=== PATIENT | female | born 1985 | race Caucasian/White ===

== ENCOUNTER 2019-03-17 14:49 | Emergency (ER) | payer SELFPAY ==
[2019-03-17 14:59] VITALS: BP 107/87; PULSE 90; RESP 16; TEMP 38.5; O2SAT 100
--- NOTE | 2019-03-17 15:17 | ED.URI ---
HPI - URI/Sore Throat General Chief Complaint: Upper Respiratory Infection Stated Complaint: [id number] Time Seen by Provider: 03/17/19 15:18 Source: patient and RN notes reviewed History of Present Illness HPI Narrative: Patient is a 33-year-old female presents the urgent care with complaints of nasal congestion, chills, body aches, cough, sneezing, fever. Patient states that started 3 days ago she has been taking Tylenol for her symptoms. Patient did not get her flu shot. Denies of any nausea, vomiting, abdominal pain. No other acute complaints. Patient does appear fatigued but otherwise no acute distress noted. Patient read the plan of care. Related Data Allergies Allergy/AdvReac Type Severity Reaction Status Date / Time citric acid Allergy Severe Verified 02/22/18 12:43 Review of Systems Review of Systems: Narrative: CONSTITUTIONAL: Reports a fever and chills EYES: Denies visual changes, redness, or discharge. ENT: Reports of nasal congestion, sinus pressure, rhinorrhea, sneezing CARDIOVASCULAR: Denies chest pain, palpitations, or edema. RESPIRATORY: Reports of cough without dyspnea or wheezing GASTROINTESTINAL: Denies abdominal pain, nausea, vomiting, or diarrhea. GENITOURINARY: Denies dysuria or hematuria. SKIN: Denies rash or itching. MUSCULOSKELETAL: Denies back pain, joint pain; reports of body aches NEUROLOGIC: Denies headache, numbness, or weakness. PMFSH Social History Social History Smoking status: Current every day smoker Alcohol intake: current Comments At the time of my signature, I reviewed and agree with the nursing past medical, surgical, social, and family history. There is no relevant family history pertinent to the patient complaint. Exam Narrative: Exam Narrative: GENERAL: This is a well-nourished, well-developed patient, appears slightly flushed and fatigued HEAD: normocephalic, atraumatic. EYES: PERRL. Sclera clear/white. Vision is grossly intact. EARS: External ears normal, auditory canals clear and without drainage, TMs normal without perforation. Hearing grossly intact. NOSE: External nose normal with no obvious nasal discharge, bilateral erythemic nares with clear to yellow rhinorrhea THROAT: Mucous membranes moist, posterior pharynx clear. Moderate postnasal drainage NECK: Neck supple CARDIOVASCULAR: Regular rate and rhythm without murmurs, gallops, or rubs. RESPIRATORY: Clear to auscultation. Breath sounds equal bilaterally. No wheezes, rales, or rhonchi. SKIN: warm, intact with no suspicious lesions or rash, good texture and turgor. NEURO: awake, alert, and oriented to person, place and time. There were no obvious focal neurologic abnormalities. EXTREMITIES: No clubbing, cyanosis, or edema. Course Vital Signs Vital signs: Vital Signs Temperature 101.3 F H 03/17/19 14:59 Pulse Rate 90 03/17/19 14:59 Respiratory Rate 16 03/17/19 14:59 Blood Pressure 107/87 03/17/19 14:59 Pulse Oximetry 100 03/17/19 14:59 Temperature 101.3 F H 03/17/19 14:59 Pulse Rate 90 03/17/19 14:59 Respiratory Rate 16 03/17/19 14:59 Blood Pressure 107/87 03/17/19 14:59 Pulse Oximetry 100 03/17/19 14:59 Reviewed MDM - URI/Sore Throat MDM Narrative Medical decision making narrative: Reviewed lab results with the patient. She is aware that she is influenza B positive. Treat symptoms with [id number] medication such as Robitussin/Delsym for cough, Claritin for allergy-like symptoms, Flonase for nasal congestion, Tylenol/Motrin for fever/body aches. Increase fluids, especially water and rest. Use a humidifier. Be aware of symptoms of dehydration such as lethargy, confusion, increased weakness, dry lips, dry eyes. Follow-up with PCP within 2-5 days or for worsening symptoms or failure to improve. Differential Diagnosis Differential diagnosis: Likely upper respiratory infection, otitis media, sinusitis, viral infection, bronchitis, influenza and pharyngitis Lab Data Attest
== END 2019-03-17 15:25 | disposition home or self-care (01) ==
PROVIDERS: Emergency Provider Nurse Practitioner Family
DX: J10.1 Influenza due to other identified influenza virus with other respiratory manifestations (principal); F17.200 Nicotine dependence, unspecified, uncomplicated
CPT/HCPCS: 87804; 99212; G0463

== ENCOUNTER 2019-05-10 10:45 | Emergency (ER) | payer SELFPAY ==
--- NOTE | ~2019-05-10 | XR_ITS ---
EXAMINATION: XR chest 1V portable INDICATION: Shortness of breath TECHNIQUE: Portable AP chest at 1130 hours COMPARISON: 07/31/2017 FINDINGS: The lungs are free of acute opacities. There is no pleural effusion or pneumothorax. The ca rdiomediastinal silhouette is normal. The visualized bones and soft tissues are unremarkable. IMPRESSION: 1. No acute cardiopulmonary abnormality. Reviewed, dictated and finalized at location B.
[2019-05-10 10:50] VITALS: BP 121/72; PULSE 86; RESP 10; TEMP 36.8; O2SAT 100
[2019-05-10 11:01] VITALS: PULSE 79
[2019-05-10 11:04] VITALS: O2SAT 99
--- NOTE | 2019-05-10 11:12 | ED.GENADULT ---
HPI - General Adult General Chief complaint: Chest Pain Stated complaint: chest pain/diff breathing/fever Time Seen by Provider: 05/10/19 10:49 Source: patient Mode of arrival: ambulatory Limitations: no limitations History of Present Illness HPI narrative: Pt is here for evaluation of cold and flu symptoms. States that she had a temperature of 101F yesterday, she did not take anything for that and is afebrile here today. Other symptoms are frequent small amounts of diarrhea and chest tightness last evening,none today. No cough or congestion. She has a history of asthma as a small child, no current medications. She works in [employer], denies any known sick contacts and no recent travel. Onset (ago): day(s) Severity: mild Associated symptoms: denies other symptoms Related Data Allergies Allergy/AdvReac Type Severity Reaction Status Date / Time citric acid Allergy Severe Anaphylaxis Verified 05/10/19 10:59 Review of Systems Review of Systems: All systems reviewed & are unremarkable except as noted in HPI and below PMFSH Past Medical History Medical History Asthma Social History Social History (Updated 05/10/19 @ 11:28 by Katerin Rehman PA-C) Smoking status: Current every day smoker Alcohol intake: current Substance use: never Living arrangements: with family Occupation/Education: occupation 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 [employer] Gender identity (if verbalized by the patient): Female Exam Const: General: no acute distress and alert Orientation/consciousness: patient oriented x3 HENMT: Head: normal to inspection Ears: TM's normal bilaterally General nose exam: Normal nares present Mouth: Yes moist mucous membranes Eyes: Conjunctivae: conjunctivae normal Pupils: Equal, round and reactive pupils present Neck: Neck: no lymphadenopathy Resp: Effort & Inspection: normal respiratory effort Auscultation: clear to auscultation bilaterally Cardio: Rate: regular rate Rhythm: regular rhythm GI: GI Palp: Yes Soft to palpation Auscultation: normal bowel sounds Skin: General skin exam: normal color Rashes: no rashes Neuro: General: moves all extremities Extrem: General: normal to inspection Psych: Mental Status: mental status grossly normal Course Course Emergency Course: Radiology and lab results reviewed with patient. Will treat with Albuterol MDI for respiratory symptoms, fever with NSAIDS and diarrhea with oral hydration and OTC medications. pt is instructed to use good hand washing and social distancing. Should she develop a persistent fever she is to contact the health department for further testing. Vital Signs Vital signs: Vital Signs Temperature 36.8 C 05/10/19 10:50 Pulse Rate 86 05/10/19 10:50 Respiratory Rate 10 L 05/10/19 10:50 Blood Pressure 121/72 05/10/19 10:50 Pulse Oximetry 100 05/10/19 10:50 Temperature 36.8 C 05/10/19 10:50 Pulse Rate 79 05/10/19 11:01 Respiratory Rate 10 L 05/10/19 10:50 Blood Pressure 121/72 05/10/19 10:50 Pulse Oximetry 99 05/10/19 11:04 Medical Decision Making Vital Signs Vital Signs: Vital Signs Temperature 36.8 C 05/10/19 10:50 Pulse Rate 86 05/10/19 10:50 Respiratory Rate 10 L 05/10/19 10:50 Blood Pressure 121/72 05/10/19 10:50 Pulse Oximetry 100 05/10/19 10:50 Temperature 36.8 C 05/10/19 10:50 Pulse Rate 79 05/10/19 11:01 Respiratory Rate 10 L 05/10/19 10:50 Blood Pressure 121/72 05/10/19 10:50 Pulse Oximetry 99 05/10/19 11:04 Lab Data Result diagrams: 05/10/19 11:38 05/10/19 11:37 Labs: Lab Results 05/10/19 05/10/19 Range/Units 11:37 11:38 WBC 6.5 (4.5-10.0) K/mm3 RBC 4.60 (4.2-5.4) M/mm3 Hgb 13.9 (12.0-15.0) g/dL Hct 42.3 (37.0-47.0) % MCV 92.0 (80-100) fl MCH 30.2 (26-34) pg MCHC 32.9 (32-36) g/dl RDW 13.0 (11.5-1
--- NOTE | 2019-05-10 11:14 | ECG_ITS ---
Measurements Intervals [place] Rate: 84 P: 45 TX: 143 QRS: 69 QRSD: 88 T: 47 QT: 338 QTc: 402 Interpretive Statements SINUS RHYTHM INCOMPLETE RIGHT BUNDLE BRANCH BLOCK BASELINE WANDER- I, III BORDERLINE ECG Electronically Signed On 05-10-2019 13:03:15 CDT by Mikel Gomez D.O.
[2019-05-10 11:44] LABS: Basophils Percent Auto 0.5 % (0.2-1.2); Eosinophils Absolute Auto 0.3 K/mm3 (0-0.3); Eosinophils Percent Auto 3.8 % (0-4.4); Hematocrit 42.3 % (37.0-47.0); Hemoglobin 13.9 g/dL (12.0-15.0); Immature Granulocyte Absolute 0.01 K/mm3 (0.00-0.031); Immature Granulocyte Percent A 0.2 % (0-0.5); Lymphocytes Absolute Auto 1.72 K/mm3 (0.9-3.2); Lymphocytes Percent Auto 26.4 % (18.3-44.2); Mean Corpuscular HGB Conc 32.9 g/dl (32-36); Mean Corpuscular Hemoglobin 30.2 pg (26-34); Mean Platelet Volume 12.3 fl (7.4-10.4); Monocytes Absolute Auto 0.4 K/mm3 (0.1-0.6); Monocytes Percent Auto 6.7 % (2.6-8.5); Neutrophils Absolute Auto 4.1 K/mm3 (1.3-6.7); Neutrophils Percent Auto 62.4 % (45.5-73.1); Platelet Count Result 217 k/mm3 (150-375); White Blood Count 6.5 K/mm3 (4.5-10.0)
[2019-05-10 11:55] LABS: Blood Urea Nitrogen 11 mg/dL (7-17); Calcium 8.8 mg/dL (8.4-10.2); Carbon Dioxide 26 mmol/L (22-30); Chloride 106 mmol/L (98-107); Estimated Glomerular Filt Rate > 60; Glucose 97 mg/dL (65-105); Potassium 3.9 mmol/L (3.4-5.0); Sodium 135 mmol/L (137-145)
[2019-05-10 12:23] VITALS: BP 103/64; PULSE 81; RESP 16; O2SAT 100
== END 2019-05-10 12:25 | disposition home or self-care (01) ==
PROVIDERS: Physician Assistant; Emergency Provider Emergency Medicine
DX: J06.9 Acute upper respiratory infection, unspecified (principal); J45.909 Unspecified asthma, uncomplicated; I45.10 Unspecified right bundle-branch block
CPT/HCPCS: 36415; 71045; 80048; 85025; 87804; 93005; 99283

== ENCOUNTER 2020-12-24 11:56 | Emergency (ER) | payer SELFPAY ==
[2020-12-24 12:17] VITALS: BP 121/73; PULSE 94; RESP 16; TEMP 36.7; O2SAT 99
--- NOTE | 2020-12-24 16:28 | PC.NURSE ---
pt not in lobby when called
== END 2020-12-24 16:28 | disposition left against medical advice (07) ==
PROVIDERS: Emergency Provider Nurse Practitioner
DX: L02.414 Cutaneous abscess of left upper limb (principal)
CPT/HCPCS: 99199

== ENCOUNTER 2021-01-30 05:16 | Emergency (ER) | payer OTHER, SELFPAY ==
--- NOTE | ~2021-01-30 | CT_ITS ---
EXAMINATION: CT abdomen pelvis w con DATE: 01/30/2021 06:36 INDICATION: Right-sided abdominal pain and guarding TECHNIQUE: Computed tomography (CT) of the abdomen and pelvis was performed with 100 mL Omnipaque-350 intravenous contrast. Automated exposure control and iterative reconstruction technique were employe d. The dose-length product was 402.98 mGy-cm. COMPARISON: 08/11/2004 FINDINGS: 1.8 cm nodule at the lateral sulcus of the anterobasilar segment of the right lower lobe and 1.5 x 0. 7 cm nodule at the azygos esophageal recess of the right lower lobe. Heart size is normal. No pericar dial or pleural effusion. Liver, gallbladder, spleen, pancreas, bilateral adrenal glands and kidneys are normal. The appendix measures up to 7 mm in maximal diameter proximal to an appendicolith near th e tip. There is no surrounding inflammatory stranding to suggest acute appendicitis. No abnormal kenton l wall thickening or obstruction. 1.5 cm peripherally enhancing corpus luteum cyst at the right ovary . There is a small amount of free fluid in the cul-de-sac which is likely physiologic. Bladder, antev erted uterus and left adnexa are unremarkable. No abscess or free intraperitoneal gas. No pathologica lly enlarged abdominal or pelvic lymphadenopathy. Bones are unremarkable. IMPRESSION: 1. Corpus luteum cyst at the right ovary with small amount of surrounding likely physiologic free flu id at the right side of the cul-de-sac. 2. Appendicolith at the tip of the appendix which measures up to 7 mm but without surrounding inflamm atory stranding and suspicion for acute appendicitis is low. 3. A couple nodules measuring 1.8 cm and 1.1 cm mean diameter at the base of the right lower lobe. Th is could represent focal atelectasis, infectious/inflammatory nodule or less likely malignancy given patient age. In addition to the relatively low likelihood of malignancy, both nodules are poorly posi tioned for percutaneous biopsy and would recommend either 3 month follow-up low-dose noncontrast ches t CT. Reviewed, dictated and finalized at location A. [facility] IMPRESSION: 1. Corpus luteum cyst at the right ovary with small amount of surrounding likel y physiologic free fluid at the right side of the cul-de-sac. 2. Appendicolith at the tip of the appendix which measures up to 7 mm but witho ut surrounding inflammatory stranding and suspicion for acute appendicitis is l ow. 3. A couple nodules measuring 1.8 cm and 1.1 cm mean diameter at the base of th e right lower lobe. This could represent focal atelectasis, infectious/inflamma tory nodule or less likely malignancy given patient age. In addition to the rel atively low likelihood of malignancy, both nodules are poorly positioned for pe rcutaneous biopsy and would recommend either 3 month follow-up low-dose noncont rast chest CT.
[2021-01-30 05:22] VITALS: BP 106/73; PULSE 87; RESP 18; TEMP 36.4; O2SAT 100
--- NOTE | 2021-01-30 05:36 | ED.ABDPAIN ---
HPI - Abdominal Pain General Chief Complaint: Abdominal Pain Stated Complaint: abdominal pain Time Seen by Provider: 01/30/21 05:24 Source: patient History of Present Illness HPI narrative: Patient presents with right sided abdominal pain. Patient reports that started just prior to come to the ER and came out of nowhere. The pain is sharp, constant, worse with walking around radiates across her entire abdomen. She denies any nausea or vomiting she denies any diarrhea she denies any fevers. She denies any urinary symptoms denies any vaginal bleeding. Related Data Allergies Allergy/AdvReac Type Severity Reaction Status Date / Time citric acid Allergy Severe Anaphylaxis Verified 01/30/21 05:25 Review of Systems Review of Systems: CONSTITUTIONAL: Denies fever, chills, or sweats. EYES: Denies visual changes, redness, or discharge. ENT: Denies rhinorrhea, congestion, sore throat, or otalgia. CARDIOVASCULAR: Denies chest pain, palpitations, or edema. RESPIRATORY: Denies cough or dyspnea. GASTROINTESTINAL: Denies nausea, vomiting, or diarrhea. GENITOURINARY: Denies dysuria or hematuria. SKIN: Denies rash or itching. MUSCULOSKELETAL: Denies back pain, joint pain, or myalgia. NEUROLOGIC: Denies headache, numbness, dizziness, or weakness. PSYCHIATRIC: Denies anxiety or depression. 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 EYES: PERRLA and EOMI. ENT: Nares clear, no rhinorrhea or epistaxis. Mucous membranes moist. NECK: Supple. No masses. No JVD CHEST: Clear to auscultation. No respiratory distress. No wheezes rales or rhonchi HEART: Regular rate and rhythm. No murmur heard. Normal peripheral pulses. ABDOMEN: Severe tenderness on the right abdomen with guarding soft, nondistended, normal active bowel sounds. EXTREMITIES: Normal range of motion. No edema. SKIN: Warm, dry, no rash. NEURO: No focal deficits. Alert and oriented x3. PSYCH: Normal mood and affect. Course Reevaluation(s) Reevaluation #1: Patient feels somewhat improved after medications. Work-up thus far reviewed with patient. With reassuring work-up and patient symptoms improving she is appropriate for trial of outpatient supportive therapies. Patient is comfortable outpatient plan. Date: 01/30/21 Time: 07:27 Vital Signs Vital signs: Vital Signs Temperature 36.4 C 01/30/21 05:22 Pulse Rate 87 01/30/21 05:22 Respiratory Rate 18 01/30/21 05:22 Blood Pressure 106/73 01/30/21 05:22 Pulse Oximetry 100 01/30/21 05:22 Temperature 36.4 C 01/30/21 05:22 Pulse Rate 68 01/30/21 07:41 Respiratory Rate 18 01/30/21 07:41 Blood Pressure 95/65 L 01/30/21 07:41 Pulse Oximetry 99 01/30/21 07:41 MDM - Abdominal Pain MDM Narrative Medical decision making narrative: H&P as above, vss, pt looks clinically well, exam patient in moderate distress due to right-sided abdominal pain, labs with UA concerning for infection otherwise reassuring, img without acute process, additional labs/img considered, symptomatic relief available as needed, on reevaluation pt continues to looks clinically well. Suspect UTI and early pyelonephritis, dns severe sepsis, severe dehydration, appendicitis, perforation, bowel obstruction. plan to tx/monitor as op w/ pcm f/u findings/plan discussed with pt, pt agree/comfortable with plan, return precautions given Lab Data Result diagrams: 01/30/21 05:43 12
[2021-01-30] MEDS: MORPHINE SULFATE (*CRX) 4 MG/ML INJ IV PUSH (05:40)
[2021-01-30] MEDS: SODIUM CHLORIDE 0.9% IV 1,000 ML 999 ML IV CONT (05:40)
[2021-01-30 05:55] LABS: Eosinophils Absolute Auto 0.3 K/mm3 (0-0.3); Hematocrit 41.2 % (37.0-47.0); Hemoglobin 14.1 g/dL (12.0-15.0); Immature Granulocyte Absolute 0.02 K/mm3 (0.00-0.031); Immature Granulocyte Percent A 0.3 % (0-0.5); Lymphocytes Absolute Auto 2.04 K/mm3 (0.9-3.2); Lymphocytes Percent Auto 30.5 % (18.3-44.2); Mean Corpuscular HGB Conc 34.2 g/dl (32-36); Mean Corpuscular Hemoglobin 30.7 pg (26-34); Mean Corpuscular Volume 89.6 fl (80-100); Mean Platelet Volume 11.6 fl (7.4-10.4); Monocytes Absolute Auto 0.5 K/mm3 (0.1-0.6); Monocytes Percent Auto 7.9 % (2.6-8.5); Neutrophils Absolute Auto 3.8 K/mm3 (1.3-6.7); Neutrophils Percent Auto 57.3 % (45.5-73.1); Platelet Count Result 241 k/mm3 (150-375); Red Cell Distribution Width 12.2 % (11.5-14.5); White Blood Count 6.7 K/mm3 (4.5-10.0)
[2021-01-30 06:12] LABS: Add Urine Microscopic? YES; Appearance Urine Cloudy (Clear); Bacteria Urine Trace /hpf; Bilirubin Urine Negative (Negative); Blood Urine 1+ (Negative); Color Urine Yellow (Yellow); Glucose Urine UA Negative (Negative); Ketones Urine Negative (Negative); Leukocyte Esterase Ur 2+ LEU/UL (Negative); Mucus Urine Few /lpf; Nitrate Urine Negative (Negative); Protein Urine Negative (Negative); Specific Grav Ur 1.025 (1.001-1.035); Squamous Epithelial Cell Urine Many /hpf (Few); Urobilinogen Urine Negative mg/dL (<2.0); WBC Urine 31-50 /hpf
[2021-01-30 06:16] LABS: Alanine Aminotransferase 33 U/L (4-35); Albumin Level 4.4 g/dL (3.5-5.1); Alkaline Phosphatase 57 U/L (38-126); Anion Gap 9 mmol/L (8-16); Aspartate Amino Transferase 28 U/L (14-36); Bilirubin,Total 0.4 mg/dL (0.2-1.3); Blood Urea Nitrogen 9 mg/dL (7-17); Calcium 8.9 mg/dL (8.4-10.2); Carbon Dioxide 21 mmol/L (22-30); Chloride 106 mmol/L (98-107); Estimated CRCL calculation 78 ml/min; Estimated Glomerular Filt Rate > 60; Glucose 108 mg/dL (65-110); Lipase 96 U/L (23-300); Sodium 136 mmol/L (137-145)
[2021-01-30 06:51] VITALS: BP 99/64; PULSE 74; RESP 16; O2SAT 98
[2021-01-30 07:01] VITALS: BP 92/70; RESP 18; O2SAT 100
[2021-01-30 07:14] VITALS: BP 95/67; RESP 18
[2021-01-30] MEDS: KETOROLAC 15 MG/ML VIAL (*BKC) IV PUSH (07:34)
[2021-01-30 07:41] VITALS: BP 95/65; PULSE 68; RESP 18; O2SAT 99
[2021-01-30 08:15] VITALS: BP 98/69; PULSE 73; RESP 18; O2SAT 100
== END 2021-01-30 08:16 | disposition home or self-care (01) ==
PROVIDERS: Emergency Provider Emergency Medicine
DX: N39.0 Urinary tract infection, site not specified (principal); R91.8 Other nonspecific abnormal finding of lung field; J45.909 Unspecified asthma, uncomplicated; F17.200 Nicotine dependence, unspecified, uncomplicated; N83.11 Corpus luteum cyst of right ovary; K38.1 Appendicular concretions
CPT/HCPCS: 36415; 74177; 80053; 81001; 81025; 83690; 85025; 87086; 87088; 96361; 96365; 96375; 99284; J0696; J1885; J2270; J7030; Q9967

== ENCOUNTER 2021-02-17 21:54 | Emergency (ER) | payer OTHER, SELFPAY ==
[2021-02-17 22:00] VITALS: BP 122/85; PULSE 94; RESP 20; TEMP 36.6; O2SAT 100
--- NOTE | 2021-02-17 22:13 | ED.GENADULT ---
HPI - General Adult General Chief complaint: Allergic Reaction Stated complaint: allergic reaction Time Seen by Provider: 02/17/21 22:04 History of Present Illness HPI narrative: 35-year-old female with history of allergies presents to the department for evaluation of a suspected allergic reaction. Patient states she did start taking omeprazole as a new medication approximately 2 weeks ago. Patient states for the last 3 days she has had increased urticarial rash. Patient has been taking Benadryl without any significant improvement. 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 Patient denies any associated shortness of breath. Patient does have allergic to oranges. Patient denies any other new medications or any other known allergies. Patient has no other new exposures other than the omeprazole. Related Data Allergies Allergy/AdvReac Type Severity Reaction Status Date / Time citric acid Allergy Severe Anaphylaxis Verified 02/20/21 16:59 omeprazole Allergy Hives Verified 02/20/21 16:59 Review of Systems Review of Systems: CONSTITUTIONAL: Denies fever, chills, or sweats. EYES: Denies visual changes, redness, or discharge. ENT: Denies rhinorrhea, congestion. Patient does report some sore throat CARDIOVASCULAR: Denies chest pain, palpitations, or edema. RESPIRATORY: Does report some chest tightness GASTROINTESTINAL: Denies abdominal pain, nausea, vomiting, or diarrhea. GENITOURINARY: Denies dysuria or hematuria. SKIN: Urticarial rash MUSCULOSKELETAL: Denies back pain, joint pain, or myalgia. NEUROLOGIC: Denies headache, numbness, or weakness. PSYCHIATRIC: Denies anxiety or depression. 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 HEAD: normocephalic, atraumatic. no facial or oral swelling. EYES: PERRLA/EOMI, conjunctivae clear. NOSE: Normal no drainage EARS:TMS clear with good light reflex. THROAT: Pharynx clear, no exudate. NECK: Supple. No adenopathy, no masses. RESPIRATORY: Airway patent, respirations nonlabored. Clear to auscultation bilaterally, no rales, rhonchi, wheezing. CARDIOVASCULAR: Regular rate and rhythm without murmurs rubs or gallops. ABDOMINAL: Soft, nontender, nondistended, normal bowel sounds MUSCULOSKELETAL: Moves all extremities. Strength/ROM intact, No edema, No calf tenderness. NEURO: Alert. Cranial nerves II through XII intact. Good gait. Good coordination SKIN: Urticarial rash on arms legs chest and back PSYCHIATRIC: Normal affect/mood. Course Reevaluation(s) Reevaluation #1: Patient was was reevaluated and patient's symptoms have resolved. Patient has no residual urticaria and patient denies any facial swelling or chest pain. Time: 23:15 Vital Signs Vital signs: Vital Signs Temperature 97.9 F 02/17/21 22:00 Pulse Rate 94 02/17/21 22:00 Respiratory Rate 20 02/17/21 22:00 Blood Pressure 122/85 02/17/21 22:00 Pulse Oximetry 100 02/17/21 22:00 Temperature 97.9 F 02/17/21 22:00 Pulse Rate 81 02/17/21 23:46 Respiratory Rate 21 H 02/17/21 23:46 Blood Pressure 113/63 02/17/21 23:46 Pulse Oximetry 98 02/17/21 23:46 Medical Decision Making Vital Signs Vital Signs: Vital Signs Temperature 97.9 F 02/17/21 22:00 Pulse Rate 94 02/17/21 22:00 Respiratory Rate 20 02/17/21 22:00 Blood Pressure 122/85 02/17/21 22:00 Pulse Oximetry 100 02/17/21 22:00 Temperature 97.9 F 02/17/21 22:00 Pulse Rate 81 02/17/21 23:46 Respiratory Rate 21 H 02/17/21 23:46 B
[2021-02-17] MEDS: EPINEPHrine HCL INJ 1 MG/ML AMPUL 0.3 MG IM (22:22)
[2021-02-17] MEDS: diphenhydrAMINE HCl INJ 50 MG/ML VIAL IV PUSH (22:22)
[2021-02-17] MEDS: FAMOTIDINE 20 MG/2 ML VIAL IV PUSH (22:22)
[2021-02-17] MEDS: methylPREDNISolone SOD SUCC 125 MG VIAL IV PUSH (22:22)
[2021-02-17 23:46] VITALS: BP 113/63; PULSE 81; RESP 21; O2SAT 98
== END 2021-02-17 23:47 | disposition home or self-care (01) ==
PROVIDERS: Emergency Provider Emergency Medicine
DX: T78.40XA Allergy, unspecified, initial encounter (principal); J45.909 Unspecified asthma, uncomplicated; F17.200 Nicotine dependence, unspecified, uncomplicated; Z91.018 Allergy to other foods
CPT/HCPCS: 96372; 96374; 96375; 99284; J0171; J1200; J2930

== ENCOUNTER 2021-02-20 15:55 | Emergency (ER) | payer OTHER, SELFPAY ==
[2021-02-20 16:16] VITALS: BP 113/78; PULSE 88; RESP 18; TEMP 36.9; O2SAT 100
[2021-02-20] MEDS: LORATADINE 10 MG TABLET PO (17:32)
[2021-02-20] MEDS: EPINEPHrine HCL INJ 1 MG/ML AMPUL 0.3 MG IM (17:32)
--- NOTE | 2021-02-20 17:34 | ED.ALLEREA ---
HPI - Allergic Reaction General Chief complaint: Allergic Reaction Stated complaint: allergic reaction Time Seen by Provider: 02/20/21 17:08 Source: patient Mode of arrival: ambulatory Limitations: no limitations History of Present Illness HPI narrative: Patient is 35 years old white female, history of allergy to numerous other stuff. Developed itching skin rash on February 16 2021, patient start on omeprazole few days prior to that, omeprazole was stopped, patient came to our emergency room on February, received 1 shot of epinephrine and got discharged on steroid for 5 days. Today her symptoms got worse again. Patient does not take any antihistamine. Patient denies any difficulty swallowing or breathing Related Data Allergies Allergy/AdvReac Type Severity Reaction Status Date / Time citric acid Allergy Severe Anaphylaxis Verified 02/20/21 16:59 omeprazole Allergy Hives Verified 02/20/21 16:59 Review of Systems Review of Systems: CONSTITUTIONAL: Denies fever, chills, or sweats. EYES: Denies visual changes, redness, or discharge. ENT: Denies rhinorrhea, congestion, sore throat, or otalgia. CARDIOVASCULAR: Denies chest pain, palpitations, or edema. RESPIRATORY: Denies cough or dyspnea. GASTROINTESTINAL: Denies abdominal pain, nausea, vomiting, or diarrhea. GENITOURINARY: Denies dysuria or hematuria. SKIN: Denies rash or itching. MUSCULOSKELETAL: Denies back pain, joint pain, or myalgia. NEUROLOGIC: Denies headache, numbness, or weakness. PSYCHIATRIC: Denies anxiety or depression. 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 There is a possibility of allergic reaction to something else at home or at work. And has nothing to do with omeprazole. The plan to increase the dose of prednisone, start patient on Zyrtec and refer her to a bicycle repairman for further evaluation. Differential Diagnosis Differential diagnosis: Likely allergic reaction, adverse reaction to drug and urticaria Critical Care Time Critical Care Time Critical Care Time: Yes Total Critical Care Time: 30 Discharge Plan Discharge Cli
== END 2021-02-20 18:39 | disposition home or self-care (01) ==
PROVIDERS: Emergency Provider Emergency Medicine
DX: T78.40XA Allergy, unspecified, initial encounter (principal); R21 Rash and other nonspecific skin eruption; T50.905A Adverse effect of unspecified drugs, medicaments and biological substances, initial encounter; J45.909 Unspecified asthma, uncomplicated; F17.200 Nicotine dependence, unspecified, uncomplicated
CPT/HCPCS: 96372; 99283; A9270; J0171

== ENCOUNTER 2021-05-10 03:46 | Emergency (ER) | payer OTHER, SELFPAY ==
[2021-05-10 03:50] VITALS: BP 116/72; PULSE 78; RESP 18; TEMP 36.5; O2SAT 97
--- NOTE | 2021-05-10 04:03 | ED.ALLEREA ---
HPI - Allergic Reaction General Chief complaint: Allergic Reaction Stated complaint: ALLERGIC REACTION Time Seen by Provider: 05/10/21 03:55 Source: patient Mode of arrival: ambulatory Limitations: no limitations History of Present Illness HPI narrative: Patient is a 35-year-old female complaining of allergic reaction described as lip and tongue swelling that started prior to arrival. Patient states that she has a history of allergic reactions in the past, has an EpiPen at home but was afraid to use it because I did not know if I can use it since I am . Patient states that she just found out she was a few days ago. Patient denies any difficulty swallowing, shortness of breath, chest tightness, or extremity swelling. Patient states that she has not used any new hygienic products or new medications. Patient denies eating any new food. Related Data Allergies Allergy/AdvReac Type Severity Reaction Status Date / Time citric acid Allergy Severe Anaphylaxis Verified 05/10/21 03:54 omeprazole Allergy Hives Verified 05/10/21 03:54 Review of Systems Review of Systems: All systems reviewed & are unremarkable except as noted in HPI and below Constitutional: Constitutional: Denies body ache(s), Denies chills, Denies excessive sweating, Denies fatigue, Denies fever(s), Denies headache(s), Denies lethargy, Denies malaise, Denies weakness and Denies weight loss Eyes: Eyes: Denies blurry vision, Denies change in vision and Denies loss of vision ENT: Denies dizziness, Denies ear discharge, Denies headache(s), Denies epistaxis, Denies nasal congestion, Denies neck pain and Denies throat swelling Cardiovascular: Cardiovascular: Denies chest pain, Denies chest pain at rest, Denies chest pain with activity, Denies diaphoresis, Denies rapid heart rate, Denies edema, Denies irregular heart rhythm, Denies lightheadedness, Denies palpitations, Denies dyspnea and Denies dyspnea on exertion Respiratory: Respiratory: Denies chest congestion, Denies cough, Denies hemoptysis, Denies dyspnea and Denies dyspnea on exertion Gastrointestinal: Gastrointestinal: Denies abdominal pain, Denies melena, Denies hematochezia, Denies diarrhea, Denies nausea, Denies vomiting and Denies hematemesis Musculoskeletal: Musculoskeletal: Denies abnormal gait, Denies deformity, Denies joint swelling, Denies limited range of motion, Denies neck pain and Denies numbness Neurologic: Denies Abnormal speech present, Denies abnormal gait, Denies confusion, Denies dizziness, Denies headache(s), Denies focal weakness, Denies loss of vision, Denies numbness, Denies Other visual disturbances, Denies Sensory deficit (Neuro) and Denies weakness Psychiatric: Psychiatric: Denies confusion, Denies depression, Denies auditory hallucinations, Denies homicidal ideation and Denies suicidal ideation Endocrine: Endocrine: Denies cold intolerance, Denies excessive sweating, Denies fatigue, Denies heat intolerance and Denies palpitations Hematologic/Lymphatic: Hematologic/Lymphatic: Denies easy bleeding and Denies easy bruising Allergic/Immunologic: Allergic/Immunologic: Denies lip swelling, Denies throat swelling and Denies tongue swelling [facility] Past Medical History Medical History (Updated 05/10/21 @ 04:07 by Hayden Carroll MD) Asthma Social History Social History Smoking status: Current every day smoker Alcohol intake: current Substance use: never 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
[2021-05-10] MEDS: diphenhydrAMINE HCl INJ 50 MG/ML VIAL 25 MG IV PUSH (04:15)
[2021-05-10] MEDS: FAMOTIDINE 20 MG/2 ML VIAL IV PUSH (04:17)
[2021-05-10] MEDS: EPINEPHrine HCL INJ 1 MG/ML AMPUL 0.3 MG SUB-Q (04:20)
--- NOTE | 2021-05-10 05:45 | PC.NURSE ---
per charge nurse and EDP elijah, hold pt 2 hours after epi dose for observation before discharge.
--- NOTE | 2021-05-10 06:28 | PC.NURSE ---
pt tongue/face/arm swelling all reduced at this time, barely noticeable. pt reports i'm feeling much better and my tongue and face dont really feel swollen at all now. per EDLorin nava pt okay to discharge.
[2021-05-10 06:29] VITALS: BP 108/69; PULSE 68; RESP 16; O2SAT 98
== END 2021-05-10 06:30 | disposition home or self-care (01) ==
PROVIDERS: Emergency Provider Emergency Medicine
DX: O99.891 Other specified diseases and conditions complicating pregnancy (principal); T78.40XA Allergy, unspecified, initial encounter; O99.331 Smoking (tobacco) complicating pregnancy, first trimester; F17.200 Nicotine dependence, unspecified, uncomplicated; Z3A.00 Weeks of gestation of pregnancy not specified
CPT/HCPCS: 96372; 96374; 96375; 99284; J0171; J1200

== ENCOUNTER 2021-08-28 16:45 | Emergency (ER) | payer OTHER, SELFPAY ==
[2021-08-28 16:54] VITALS: BP 112/71; PULSE 82; RESP 16; TEMP 36.7; O2SAT 100
--- NOTE | 2021-08-28 16:54 | ED.GENADULT ---
HPI - General Adult General Chief complaint: Dizziness Stated complaint: dizziness Time Seen by Provider: 08/28/21 16:54 Source: patient and RN notes reviewed Mode of arrival: ambulatory Limitations: no limitations History of Present Illness HPI narrative: 35-year-old female who is approximately 20+ weeks presents to the [facility] with dizziness where she feels like she is about to pass out / fall out and vomit. Has been going on approximately 1-1/2 hours with no other symptoms. No neurologic deficits. No chest pain or shortness of breath. Denies fevers. No treatment prior to arrival Dr Pacheco is OB. MD complaint: Dizzy Onset (ago): hour(s) (1.5) Related Data Allergies Allergy/AdvReac Type Severity Reaction Status Date / Time citric acid Allergy Severe Anaphylaxis Verified 05/10/21 03:54 omeprazole Allergy Hives Verified 05/10/21 03:54 Review of Systems Review of Systems: All systems reviewed & are unremarkable except as noted in HPI and below Constitutional: Constitutional: Reports no additional constitutional complaints, Denies chills and Denies fever(s) Eyes: Eyes: Reports no additional eye complaints ENT: Reports system reviewed and no additional complaints, except as documented Cardiovascular: Cardiovascular: Reports no additional cardiovascular complaints Respiratory: Respiratory: Reports no additional respiratory complaints Gastrointestinal: Gastrointestinal: Reports no additional gastrointestinal complaints Musculoskeletal: Musculoskeletal: Reports no additional musculoskeletal complaints Integumentary/Breasts: Skin/Breast: Reports system reviewed and no additional complaints, except as docu Neurologic: Reports as per HPI, Reports dizziness, Denies syncope, Denies headache(s), Denies focal weakness, Denies numbness and Denies weakness Psychiatric: Psychiatric: Reports no additional psychiatric complaints Allergic/Immunologic: Allergic/Immunologic: Reports no additional allergic/immunologic complaints [facility] Past Medical History Medical History (Updated 08/28/21 @ 17:27 by Joyce Laguerre APRN) Asthma Social History Social History Smoking status: Current every day smoker Alcohol intake: current Substance use: never 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 There is no relevant family history pertinent to the patient complaint. Exam Narrative: heart tones 145. Patient reports that she is feeling the baby moving without issue Const: General: healthy appearing, no acute distress and alert Nutritional Appearance: well nourished Orientation/consciousness: patient oriented x3 Limitations: no limitations HENMT: Head: normal to inspection Ears: external ears normal, TM's normal bilaterally and EAC's normal General nose exam: Normal external nose present Throat: posterior oropharynx normal Eyes: General: appearance normal, both eyes and all related structures Conjunctivae: conjunctivae normal Pupils: Equal, round and reactive pupils present EOM: EOMs intact bilaterally Neck: Neck: normal visual inspection, no lymphadenopathy and no meningeal signs Chest: Chest palpation & inspection: normal inspection of the chest Resp: Effort & Inspection: normal respiratory effort and no use of accessory muscles Auscultation: clear to auscultation bilaterally, no crackles, no rales, no rhonchi and no wheezes Cardio: Rate: regular rate Rhythm: regular rhythm Back/Spine/Pelvis: Cervical Spine: normal cervical lordosis Thoracic/Lumbar Spine: thoracic and lumbar spine normal to inspection Skin: General skin exam: normal color Rashes: no rashes Wounds: no wounds Neuro: General: patient oriented x3, moves all extremities,
--- NOTE | 2021-08-28 17:01 | ECG_ITS ---
Measurements Intervals [place] Rate: 78 P: 22 NH: 156 QRS: 60 QRSD: 90 T: 38 QT: 354 QTc: 403 Interpretive Statements SINUS RHYTHM INCOMPLETE RIGHT BUNDLE BRANCH BLOCK BASELINE ARTIFACT- II, III, AVF, V4-V5 BORDERLINE ECG Electronically Signed On 08-29-2021 13:25:39 CDT by Mikel Gomez D.O.
== END 2021-08-28 17:14 | disposition short-term general hospital (02) ==
PROVIDERS: Emergency Provider Nurse Practitioner
DX: R42 Dizziness and giddiness (principal); F17.200 Nicotine dependence, unspecified, uncomplicated; J45.909 Unspecified asthma, uncomplicated
CPT/HCPCS: 93005; 99213; G0463

== ENCOUNTER 2021-08-28 17:45 | Observation (INO) | payer OTHER, SELFPAY ==
[2021-08-28 18:19] VITALS: BP 109/63; PULSE 77
[2021-08-28 18:28] VITALS: BMI 34.4
--- NOTE | 2021-08-28 18:28 | OBADM ---
This patient, Ching Hwoe, admitted to the OB room OB Post 113 for observation. Patient/family oriented to hospital policies and general routines including ID bracelet, bed and alarms, visiting hours, pain management, procedures, bathroom and other care routines, personal items, smoking policy, room service/diet, and visiting hours. Patient/Family are encouraged to report perceived risks to care and to ask questions if they do not understand what they are told or what they should do.
--- NOTE | 2021-08-29 16:51 | PM.OBTRLD ---
OB - Triage/Final Diagnosis Visit Information Date of evaluation: 08/29/21 Reason for evaluation: threatened labor Comments/Additional reasons for admission: I have assessed the risk for this patient, Ching Howe, and determined that she would benefit from observation care. Evaluation Vital signs: Vital Signs - 24 hr 08/28/21 18:19 08/28/21 18:28 Pulse Rate 77 Blood Pressure 109/63 Oxygen Delivery Room Air
== END 2021-08-28 18:47 | disposition home or self-care (01) ==
PROVIDERS: Admitting Provider Obstetrics & Gynecology; Visit Provider Obstetrics & Gynecology
DX: O47.02 False labor before 37 completed weeks of gestation, second trimester (principal); Z3A.21 21 weeks gestation of pregnancy
CPT/HCPCS: 93005; 99213; G0378; G0379; G0463

== ENCOUNTER 2021-11-05 08:32 | Observation (INO) | payer OTHER, SELFPAY ==
[2021-11-05 09:00] VITALS: BP 99/52; PULSE 87; BMI 35.2
[2021-11-05 09:00] LABS: Appearance Urine Slightly Cloudy (Clear); Bilirubin Urine Negative (Negative); Blood Urine Negative (Negative); Color Urine Yellow (Yellow); Glucose Urine UA Trace mg/dL (Negative); Ketones Urine Negative (Negative); Leukocyte Esterase Ur Trace LEU/UL (NEGATIVE); Nitrate Urine Negative (Negative); Protein Urine Negative (Negative); Urobilinogen Urine 0.2 mg/dL (<2.0)
--- NOTE | 2021-11-05 09:00 | OBADM ---
This patient, Ching Howe, admitted to the OB room OB Post 117 for observation. Patient/family oriented to hospital policies and general routines including ID bracelet, bed and alarms, visiting hours, pain management, procedures, bathroom and other care routines, personal items, smoking policy, room service/diet, and visiting hours. Patient/Family are encouraged to report perceived risks to care and to ask questions if they do not understand what they are told or what they should do.
[2021-11-05 09:12] LABS: Bacteria Urine Trace /hpf; Mucus Urine Rare /lpf; Squamous Epithelial Cell Urine Few /hpf (Few)
[2021-11-05 09:14] LABS: Add Urine Microscopic? YES
[2021-11-05 09:15] VITALS: BP 97/54; PULSE 85
[2021-11-05 09:30] VITALS: BP 96/54; PULSE 83
[2021-11-05 09:45] VITALS: BP 98/53; PULSE 82
--- NOTE | 2021-11-07 14:41 | PM.OBTRLD ---
OB - Triage/Final Diagnosis Visit Information Comments/Additional reasons for admission: I have assessed the risk for this patient, Ching Howe, and determined that she would benefit from observation care. Evaluation Laboratory results: Laboratory Tests 11/05/21 08:55 Urine Color Yellow Urine Appearance Slightly cloudy Urine pH 6.0 Ur Specific [place] 1.020 Urine Protein Negative Urine Glucose (UA) Trace H Urine Ketones Negative Ur Blood (Man) Negative Urine Nitrate Negative Urine Bilirubin Negative Urine Urobilinogen 0.2 Ur Leukocyte Esterase Trace H Urine RBC 6-10 H Urine WBC 4-6 H Ur Squamous Epith Cells Few Urine Bacteria Trace Urine Mucus Rare Final Diagnosis (1) Abdominal pain affecting : Code(s): O26.899 - Other specified related conditions, unspecified trimester; R10.9 - Unspecified abdominal pain Status: Acute
== END 2021-11-05 09:57 | disposition home or self-care (01) ==
PROVIDERS: Admitting Provider Obstetrics & Gynecology; Visit Provider Obstetrics & Gynecology
DX: O26.893 Other specified pregnancy related conditions, third trimester (principal); R10.9 Unspecified abdominal pain; Z3A.30 30 weeks gestation of pregnancy
CPT/HCPCS: 81001; 87086; G0378; G0379

== ENCOUNTER 2021-11-27 07:59 | Observation (INO) | payer OTHER, SELFPAY ==
[2021-11-27 08:16] VITALS: BP 126/64; PULSE 94
[2021-11-27 08:17] VITALS: BP 111/67; PULSE 93
[2021-11-27 08:24] VITALS: BMI 37.4
--- NOTE | 2021-11-27 08:25 | OBADM ---
This patient, Ching Howe, admitted to the OB room OB Post 115 for observation. Patient/family oriented to hospital policies and general routines including ID bracelet, bed and alarms, visiting hours, pain management, procedures, bathroom and other care routines, personal items, smoking policy, room service/diet, and visiting hours. Patient/Family are encouraged to report perceived risks to care and to ask questions if they do not understand what they are told or what they should do.
[2021-11-27 08:31] VITALS: BP 114/65; PULSE 95
[2021-11-27 08:40] LABS: Add Urine Microscopic? YES; Appearance Urine Cloudy (Clear); Bilirubin Urine Negative (Negative); Blood Urine Negative (Negative); Color Urine Yellow (Yellow); Glucose Urine UA Negative (Negative); Ketones Urine Negative (Negative); Leukocyte Esterase Ur Negative LEU/UL (Negative); Mucus Urine Rare /lpf; Nitrate Urine Negative (Negative); Protein Urine 1+ mg/dL (Negative); RBC Urine 0-2 /hpf (0-2); Specific Grav Ur 1.024 (1.001-1.035); Squamous Epithelial Cell Urine Moderate /hpf (Few); Urobilinogen Urine Negative mg/dL (<2.0)
[2021-11-27 08:43] VITALS: PULSE 95
--- NOTE | 2021-11-27 08:52 | WPDOBADMIT ---
Obstetrics - Admit Note Admission Note: 35 y/o at 33 2/7 weeks here with low abdominal cramping, worse with standing. No vaginal bleeding or leakage of fluid. No GI / complaints. Good movement. Irregular contractions. AVSS NST reactive TOCO: rare contractions ABD soft, nontender, gravid, Pain is along inguinal ligaments. EXT nontender Cervix closed / thick to my exam UA: S.G. 1.024, 1+ protein A: Musculoskeltal pain of P: Home to hydrate, rest, try Tylenol. F/u as scheduled.
--- NOTE | 2021-11-27 09:25 | PC.NURSE ---
0834 Dr. Pacheco in the room with patient. SVE preformed, cervix closed. Orders to discharge to home.
--- NOTE | 2021-11-29 11:24 | PM.OBTRLD ---
OB - Triage/Final Diagnosis Visit Information Comments/Additional reasons for admission: I have assessed the risk for this patient, Ching Howe, and determined that she would benefit from observation care. Evaluation Laboratory results: Laboratory Tests 11/27/21 08:12 Urine Color Yellow Urine Appearance Cloudy H Urine pH 5.0 Ur Specific [place] 1.024 Urine Protein 1+ H Urine Glucose (UA) Negative Urine Ketones Negative Ur Blood (Man) Negative Urine Nitrate Negative Urine Bilirubin Negative Urine Urobilinogen Negative Leukocyte Esterase Rfl Negative Urine RBC 0-2 Urine WBC 4-6 H Ur Squamous Epith Cells Moderate H Urine Mucus Rare Final Diagnosis (1) Abdominal pain affecting : Code(s): O26.899 - Other specified related conditions, unspecified trimester; R10.9 - Unspecified abdominal pain Status: Acute
== END 2021-11-27 09:06 | disposition home or self-care (01) ==
PROVIDERS: Admitting Provider Obstetrics & Gynecology; Visit Provider Obstetrics & Gynecology
DX: O26.893 Other specified pregnancy related conditions, third trimester (principal); R10.9 Unspecified abdominal pain; Z3A.33 33 weeks gestation of pregnancy
CPT/HCPCS: 59025; 81001; G0378; G0379

== ENCOUNTER 2021-12-29 13:23 | Emergency (ER) | payer OTHER, SELFPAY ==
[2021-12-29 13:35] VITALS: BP 99/62; PULSE 83; RESP 20; TEMP 36.6; O2SAT 98
--- NOTE | 2021-12-29 13:52 | ED.URI ---
HPI - URI/Sore Throat General Chief Complaint: Upper Respiratory Infection Stated Complaint: Fever,Cough Time Seen by Provider: 12/29/21 13:52 Source: patient Mode of arrival: ambulatory Limitations: no limitations History of Present Illness HPI Narrative: 36-year-old female presents with complaint of nasal congestion, cough, scratchy throat, fatigue, fever starting this morning. Patient is 37 weeks . States she called her OB to inform him she was sick and was told to come to [facility] for medication well. Patient took Tylenol to treat her fever prior to arrival. Not taking any other [id number] medications to treat her symptoms. Denies chest pain and shortness of breath. No complaints today. All systems reviewed and negative except as noted above. Related Data Home Medications Medication Instructions Recorded Confirmed vits no.126-ferrous fum 1 tablet PO DAILY 11/27/21 12/29/21 28 mg iron-folic acid 800 mcg tablet (Classic ) Allergies Allergy/AdvReac Type Severity Reaction Status Date / Time citric acid Allergy Severe Anaphylaxis Verified 12/29/21 13:43 omeprazole Allergy Hives Verified 12/29/21 13:43 Review of Systems Review of Systems: CONSTITUTIONAL: Reports fever, chills, or sweats. EYES: Denies visual changes, redness, or discharge. ENT: reports rhinorrhea, congestion, sore throat. Deniesotalgia. CARDIOVASCULAR: Denies chest pain, palpitations, or edema. RESPIRATORY: reports cough. Denies dyspnea. GASTROINTESTINAL: Denies abdominal pain, nausea, vomiting, or diarrhea. GENITOURINARY: Denies dysuria or hematuria. SKIN: Denies rash or itching. MUSCULOSKELETAL: Denies back pain, joint pain, or myalgia. NEUROLOGIC: Denies headache, numbness, or weakness. PSYCHIATRIC: Denies anxiety or depression. All other systems reviewed are negative, except as documented in HPI. 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 There is no relevant family history pertinent to the presenting complaint. Exam Narrative: GENERAL: This is a well-nourished, well-developed patient, in no apparent distress. HEAD: normocephalic, atraumatic. EYES: PERRL. Sclera clear/white. Vision is grossly intact. EARS: External ears normal, auditory canals clear and without drainage, TMs normal without perforation. Hearing grossly intact. NOSE: External nose normal with clear nasal drainage, erythema tenderness without swelling. THROAT: Mucous membranes moist, posterior pharynx clear. NECK: Neck supple, non-tender without lymphadenopathy, masses or thyromegaly. CARDIOVASCULAR: Regular rate and rhythm without murmurs, gallops, or rubs. RESPIRATORY: Clear to auscultation. Breath sounds equal bilaterally. No wheezes, rales, or rhonchi. SKIN: warm, Dry, intact with no suspicious lesions or rash, good texture and turgor. NEURO: awake, alert, and oriented to person, place and time. There were no obvious focal neurologic abnormalities. EXTREMITIES: No joint tenderness, effusion, or edema noted. Course Course Level of Care: Express [facility] Visit Vital Signs Vital signs: Vital Signs Temperature 36.6 C 12/29/21 13:35 Pulse Rate 83 12/29/21 13:35 Respiratory Rate 20 12/29/21 13:35
== END 2021-12-29 14:08 | disposition home or self-care (01) ==
PROVIDERS: Emergency Provider Nurse Practitioner Family; PCP Obstetrics & Gynecology
DX: O99.513 Diseases of the respiratory system complicating pregnancy, third trimester (principal); Z3A.37 37 weeks gestation of pregnancy; J06.9 Acute upper respiratory infection, unspecified; Z20.822 Contact with and (suspected) exposure to COVID-19; O99.333 Smoking (tobacco) complicating pregnancy, third trimester; F17.290 Nicotine dependence, other tobacco product, uncomplicated; J45.909 Unspecified asthma, uncomplicated
CPT/HCPCS: 87426; 87804; 99213; C9803; G0463

== ENCOUNTER 2022-01-07 20:57 | Inpatient (IN) | payer OTHER, SELFPAY ==
[2022-01-07] VITALS (10 sets, daily range): BP systolic 105–129; BP diastolic 56–72; PULSE 79–92
[2022-01-07 21:40] LABS: Basophils Percent Auto 0.2 % (0.2-1.2); Eosinophils Absolute Auto 0.2 K/mm3 (0-0.3); Eosinophils Percent Auto 1.7 % (0-4.4); Hematocrit 35.6 % (37.0-47.0); Hemoglobin 12.3 g/dL (12.0-15.0); Immature Granulocyte Absolute 0.13 K/mm3 (0.00-0.031); Immature Granulocyte Percent A 1.2 % (0-0.5); Lymphocytes Absolute Auto 2.29 K/mm3 (0.9-3.2); Lymphocytes Percent Auto 21.4 % (18.3-44.2); Mean Corpuscular HGB Conc 34.6 g/dl (32-36); Mean Corpuscular Hemoglobin 31.8 pg (26-34); Mean Platelet Volume 11.6 fl (7.4-10.4); Monocytes Absolute Auto 0.8 K/mm3 (0.1-0.6); Monocytes Percent Auto 7.1 % (2.6-8.5); Neutrophils Absolute Auto 7.3 K/mm3 (1.3-6.7); Neutrophils Percent Auto 68.4 % (45.5-73.1); Platelet Count Result 170 k/mm3 (150-375); Red Blood Count 3.87 M/mm3 (4.2-5.4); Red Cell Distribution Width 14.3 % (11.5-14.5); White Blood Count 10.7 K/mm3 (4.5-10.0)
[2022-01-07] MEDS: DINOPROSTONE 10 MG VAG INSERT VAGINAL (21:57)
[2022-01-07] MEDS: AMPICILLIN 2 GM/NS 100 ML 2 GM/100 ML BAG IVPB (22:00)
[2022-01-07] MEDS: LACTATED RINGERS 1,000 ML 125 ML IV CONT (22:00)
[2022-01-08] VITALS (203 sets, daily range): BP systolic 56–130; BP diastolic 31–105; PULSE 71–210; TEMP 36.4–38.6; O2SAT 94–100
[2022-01-08] MEDS: AMPICILLIN 1 GM/NS 50 ML 1 GM/50 ML BAG IVPB ×5 (01:59→18:38)
[2022-01-08] MEDS: OXYTOCIN 30 UNITS/NS 500 ML 30 UNITS/500 ML BAG IV CONT (05:51)
--- NOTE | 2022-01-08 06:03 | WPDANESEPP ---
Anes - Eval Pre Procedure Procedure: labor epidural Date/Time: 01/08/22 06:03 Pre Op Diagnosis: IOL Patient Data Age: 36 Gender: F Height: Weight: Last Vital Signs Temp 36.4 C 01/08/22 05:08 Pulse 93 01/08/22 06:00 BP 127/64 01/08/22 06:00 O2 Del Method Room Air 01/07/22 22:19 Allergies Allergy/AdvReac Type Severity Reaction Status Date / Time citric acid Allergy Severe Anaphylaxis Verified 12/29/21 13:43 omeprazole Allergy Hives Verified 12/29/21 13:43 Home Medications Medication Instructions Recorded Confirmed Type vits no.126-ferrous fum 1 tablet PO DAILY 11/27/21 01/07/22 History 28 mg iron-folic acid 800 mcg tablet (Classic ) Laboratory Tests 01/07/22 01/07/22 01/07/22 21:19 21:19 21:19 WBC 10.7 K/mm3 H K/mm3 (4.5-10.0) RBC 3.87 M/mm3 L M/mm3 (4.2-5.4) Hgb 12.3 g/dL g/dL (12.0-15.0) Hct 35.6 % L % (37.0-47.0) MCV 92.0 fl fl (80-100) MCH 31.8 pg pg (26-34) MCHC 34.6 g/dl g/dl (32-36) RDW 14.3 % % (11.5-14.5) Plt Count 170 k/mm3 k/mm3 (150-375) MPV 11.6 fl H fl (7.4-10.4) Immature Gran % (Auto) 1.2 % H % (0-0.5) Neut % (Auto) 68.4 % % (45.5-73.1) Lymph % (Auto) 21.4 % % (18.3-44.2) [place] % (Auto) 7.1 % % (2.6-8.5) Eos % (Auto) 1.7 % % (0-4.4) Baso % (Auto) 0.2 % % (0.2-1.2) Lymph # (Auto) 2.29 K/mm3 K/mm3 (0.9-3.2) [place] # (Auto) 0.8 K/mm3 H K/mm3 (0.1-0.6) Eos # (Auto) 0.2 K/mm3 K/mm3 (0-0.3) Baso # (Auto) 0.0 K/mm3 K/mm3 (0.0-0.1) Abs Immat Gran (auto) 0.13 K/mm3 H K/mm3 (0.00-0.031) Absolute Neuts (auto) 7.3 K/mm3 H K/mm3 (1.3-6.7) Absolute Nucleated RBC 0.0 K/mm3 K/mm3 (0.0-0.012) Nucleated RBC % 0.0 % % (0.0-0.2) RPR Pending Blood Type B Positive Antibody Screen Negative Patient hx anesthesia problems: none Family hx anesthesia problems: none Results Review: All pre-operative results and documents have been reviewed as part of the pre-operative evaluation. [facility] Past Medical History Medical History (Updated 01/08/22 @ 06:04 by Deisy Harrington CRNA) Asthma Migraine Family History Family History Mother RPE (retinal pigment epithelium) atrophy Sibling RPE (retinal pigment epithelium) atrophy Grandparent Diabetes mellitus Social History Social History Smoking status: Current every day smoker Tobacco type: e-cigarettes/vaping Second hand tobacco smoke exposure: Yes Alcohol intake: current Substance use: never Lack of Transportation: No Lack of Food: Never True Current Housing: I Have Housing Concerned About Future Housing: No Difficulty Paying Gas/Electric Bills: No Difficulty Paying for Meds: No Currently Unemployed: No Education: Don't Know Difficulty w/ Childcare or Family Care: No 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
--- NOTE | 2022-01-08 08:41 | WPDOBADMIT ---
Obstetrics - Admit Note Admission Note: record reviewed. Additions to the history and/or subsequent changes in the physical findings follow. 36 y/o at 39 weeks here for scheduled induction of labor. GBS pos. Had a low lying placenta, this has resolved as of ultrasound 2 weeks ago. Cervidil overnight, has been withdrawn. AVSS NST reactive TOCO: contractions irregularly ABD soft, nontender, gravid, vertex. EXT nontender Cervix 3/50/-2. AROM with clear fluid. IUPC placed. Vertex. A: IUP at 39 weeks, desiring induction. P: Oxytocin. Anticipate .
[2022-01-08] MEDS: LACTATED RINGERS 1,000 ML 125 ML IV CONT ×2 (09:15→22:45)
--- NOTE | 2022-01-08 12:26 | PM.OBPNLAB ---
Pain Control Date/time seen: 01/08/22 12:26 Comfortable with epidural. AVSS NST reactive TOCO: cointractions irregularly, not adequate Cervix /-2. Continue labor.
[2022-01-08 14:47] LABS: Rapid Plasma Reagin Non-Reactive (NonReactive)
--- NOTE | 2022-01-08 17:55 | PM.OBPNLAB ---
Pain Control Date/time seen: 01/08/22 17:55 Comfortable with epidural AVSS NST reactive TOCO: contractions every 2-3 min Cervix C/+2 Begin pushing.
[2022-01-08] MEDS: ONDANSETRON INJ 4 MG/2 ML VIAL IV PUSH ×2 (18:38→22:45)
--- NOTE | 2022-01-08 21:36 | P.PCNOB_ITS ---
OB - Delivery Note Procedure Delivery date: 01/08/22 Procedure: Induction of labor with VAVD Delivery monitor: External FHT, External Uterine and Internal Uterine Route of delivery: vacuum extraction Laceration Description: Perineal - 2nd Degree Delivery repair: vicryl (3-0) Specimen: Yes (cord blood, placenta) Quantitative Blood Loss (ml): 320 Anesthesia type: Epidural Disposition: PACU Complications: Shoulder dystocia Narrative: 36 y/o at 39 2/7 weeks gestation who presented to the hospital for induction of labor. Cervidil was placed overnight, then withdrawn the following morning. She received ampicillin for GBS colonization. Oxytocin was administered intravenously. Amniotomy was performed with return of clear fluid. She received an epidural for pain control. Her labor progressed and her cervix dilated completely. She pushed with good effort for 3 hours, bringing the presenting part to the +1 of 3 station. ROP position was obvious. I offered vacuum assisted vaginal delivery. We reviewed risks / benefits / alternatives, and the patient and her partner agreed. The [place] vacuum cup was applied to the vertex. The head was gently flexed. Over four contractions, with one pop off, the infant's head delivered to the perineum. A shoulder dystocia was encountered. Fundal pressure and traction on the head were strictly avoided. McRobert's maneuver was employed, as was oblique suprapubic pressure. The posterior shoulder was able to be grasped. It was rotated in a counterclockwise direction and the anterior shoulder was reduced. The body delivered. The cord was clamped and cut. The was handed off the field. Cord blood was collected. The placenta delivered spontaneously and was grossly normal in appearance. The usual 3 vessel cord was noted. A second degree midline perineal laceration was sustained. This was reapproximated using 3 0 Vicryl in the usual layered fashion. Excellent hemostasis resulted as did excellent reapproximation of the normal anatomy. Needle and instrument counts were correct. The patient was taken to recovery room in stable condition. The went to the nursery in stable condition. I was present and scrubbed for the entire delivery. [place] Baby Date of : 01/08/22 Time of : 21:13 Weeks of gestation at delivery: 39 gender: Female Weight (pounds): 8 Weight (ounces): 15 presentation: vertex position: Right Occiput Posterior Placenta delivery description: Spontaneous and Normal Configuration Cord Vessel Description: 3 Vessels and Clamped/Cut score one minute: 4 score five minutes: 7
--- NOTE | 2022-01-08 21:44 | PM.OBDSVD ---
DS: Admitting Diagnosis Discharge Date 01/11/22 Admitting Diagnosis IUP at 39 2/7 weeks GBS colonization DS: Discharge Diagnosis Discharge Diagnosis (1) (normal spontaneous vaginal delivery): Code(s): O80 - Encounter for full-term uncomplicated delivery Status: Acute (2) GBS (group B Streptococcus carrier), +RV culture, currently : Code(s): O99.820 - Streptococcus B carrier state complicating Status: Acute OB - DS: Summary OB Procedures : None OB Procedures Intrapartum: Vacuum extraction OB Procedures: : Transfusion and Curettage Time Spent with Patient Time attestation: Total time spent providing and/or coordinating discharge services: DS: Data Data Completed and Pending Labs on day of discharge: Labs from last 24 hours 01/07/22 01/07/22 21:19 21:19 RPR Non-reactive Blood Type B Positive Antibody Screen Negative Discharge Plan Discharge Attending physician on discharge: Fish Pacheco Consulting providers: Deisy Harrington ; Melba Hill ; Cordell Lyons Discharging Clinician: Fish Pacheco Patient Disposition: Home, Self-Care Activity: pelvic rest Diet: regular Discharge Instructions: Education: Mom and Baby Guide Given to: Mother Follow-Up: Call your delivering provider's office for an appointment to be seen in: 4-6 Weeks Mom and baby [facility] the follow-up appointment. Appointment Date/Time: January 12, 2022 at 11:00pm What to expect at your follow-up visit: Blood Pressure Check Physical Assessment Call [phone] if you are unable to keep your appointment time. BREAST CARE: * Wear a snug supportive bra. * For engorgement discomfort: Bottle Feeding: * May apply ice packs EPISIOTOMY/PERINEAL CARE: * Until bleeding stops, use your jayla bottle after urinating * Change your pad frequently throughout the day * You may take sitz baths several times a day (fill your bathtub with warm water and soak for 20 minutes.) Do NOT bathe in the water * No tub baths until seen by your physician - You may shower ACTIVITY: * Rest as much as possible. * Do not exercise or lift anything heavier than your baby (such as laundry or other children.) * Avoid stairs or driving as much as possible. * Do not put anything into the vagina. No douching, tampons, or sexual activity until seen by physician. NOTIFY PHYSICIAN IF YOU HAVE ANY QUESTIONS OR IF ANY OF THE FOLLOWING SYMPTOMS OCCUR: * If your vaginal area becomes red, swollen, or more painful than what you have experienced in the hospital. * If your vaginal bleeding becomes foul smelling. * If your vaginal bleeding becomes more heavy than a period or if your bleeding changes from pink to bright red. However, you may pass an occasional walnut-sized clot once or twice for the first week . * If you experience a sharp, shooting pain in your calves. * If you discover a hard, reddened area on your breast or if you experience flu-like symptoms. DIET: * Eat regular, well-balanced meals. * Drink plenty of fluids daily. If , drink to thirst. Call or return if temperature above 100.4? F, increased abdominal pain, increased vaginal bleeding or any new problems. Patient Instructions: Caring for Your Baby (DC), Vaginal Delivery (DC) Stand Alone Forms: General Discharge Information Follow-up/Referrals: Fish Pacheco MD [Primary Care Provider] - 6 Weeks Discharge Medications: New ibuprofen 600 mg tablet 600 mg PO Q6H PRN (Reason: cramps) Qty: 30 0RF hydrocodone-acetaminophen 5-325 mg tablet 1 tablet PO Q6H PRN (Reason: pain) Qty: 20 0RF ferrous sulfate 325 mg (65 mg iron) tablet 325 mg PO DAILY Qty: 30 0RF Continued Classic 28 mg iron- 800 mcg Tablet 1 tablet PO DAILY Date of admission: 01/07/22 20:57 Primary
[2022-01-08] MEDS: OXYTOCIN 30 UNITS/NS 500 ML 30 UNITS/500 ML BAG 125 UNITS IV CONT (22:45)
[2022-01-09] VITALS (25 sets, daily range): BP systolic 90–132; BP diastolic 54–80; PULSE 87–103; RESP 15–20; TEMP 36.2–37.7; O2SAT 96–100
--- NOTE | 2022-01-09 00:51 | OBPPTRN ---
Patient transferred to post room #284 via W/C. Support person present. Oriented to unit, room, information board, rooming in, admission packet and security measures. Patient verbalizes understanding.
[2022-01-09] MEDS: ACETAMINOPHEN 325 MG TABLET 650 MG PO (05:15)
[2022-01-09 05:56] LABS: Hemoglobin 8.3 g/dL (12.0-15.0)
--- NOTE | 2022-01-09 08:47 | P.PNOB_ITS ---
OB - PN: Subj Subjective Date/time seen: 01/09/22 08:47 Narrative: Pain OK. Vaginal bleeding moderate. OB - PN: Obj Data Labs CBC & Chem 7: 01/09/22 04:56 Labs: Laboratory Results - last 24 hr 01/07/22 01/09/22 21:19 04:56 Hgb 8.3 L D Hct 24.0 L RPR Non-reactive OB - PN A/P Plan Comments: A: PPD#1, doing well. hemorrhage, resolved. But bleeding still a little heavy. P: Try TXA. Add [place] for pain control. Routine care. Exam Psych: Other: AVSS ABD soft, nontender, fundus firm EXT nontender
[2022-01-09] MEDS: TRANEXAMIC ACID 1,000MG/ISO100 1,000 MG/100 ML BAG 200 MG IVPB (09:32)
[2022-01-09] MEDS: HYDROcodone/acetaminophen (*CRX) 5-325 MG TABLET 1 TAB PO ×2 (09:35→20:19)
[2022-01-09] MEDS: IBUPROFEN 600 MG TABLET PO ×2 (09:35→20:19)
[2022-01-09] MEDS: DOCUSATE SODIUM 100 MG CAPSULE PO ×2 (10:06→16:29)
[2022-01-09] MEDS: POLYSACCHARIDE IRON COMPLEX 150 MG CAPSULE PO ×2 (10:06→16:29)
[2022-01-09] MEDS: MULTIVIT/MIN/PREN/FOL AC/IRON TABLET 1 TAB PO (10:06)
--- NOTE | 2022-01-09 10:26 | WPDANLDPN2 ---
Anes-Prog Note L&D Date/Time: 01/09/22 10:26 Comfortable throughout: labor and delivery Neuraxial method: epidural Epidural/Spinal procedure site: clean & non-tender Neuro status: Neuro function grossly intact. Cardiovascular status: normal Respiratory status: normal Airway patency: baseline Mental status: baseline Post-Op hydration status: normal Vital Signs: Last Vital Signs Temp 37.7 C H 01/09/22 08:00 Pulse 90 01/09/22 08:00 Resp 18 01/09/22 08:00 BP 106/54 L 01/09/22 08:00 Pulse Ox 99 01/09/22 08:00 O2 Del Method Room Air 01/09/22 01:10 Pain score (VAS): 02/26 I/O: Intake & Output 01/08/22 01/09/22 01/09/22 23:59 07:59 15:59 Intake Total 1500 1000 Output Total 1381 2113 Balance 119 -1113 Post-procedural complaints: none Patient feedback: Patient satisfied with anesthetic care.
--- NOTE | 2022-01-09 12:00 | P.HP_ITS ---
H&P: HPI History of Present Illness Date/Time: 02/04/22 19:57 Chief Complaint: Bleeding Narrative: 36 y/o who had undergone VAVD on 01/08/22. On the morning of 01/09/22, she had had episodes of heavy vaginal bleeding. She was offered D&C. Review of Systems Review of Systems: All systems reviewed & are unremarkable except as noted in HPI and below PMFSH Past Medical History Medical History Asthma Migraine Family History Family History Mother RPE (retinal pigment epithelium) atrophy Sibling RPE (retinal pigment epithelium) atrophy Grandparent Diabetes mellitus Social History Social History Smoking status: Current every day smoker Tobacco type: e-cigarettes/vaping Second hand tobacco smoke exposure: Yes Alcohol intake: current Substance use: never Lack of Transportation: No Lack of Food: Never True Current Housing: I Have Housing Concerned About Future Housing: No Difficulty Paying Gas/Electric Bills: No Difficulty Paying for Meds: No Currently Unemployed: No Education: Don't Know Difficulty w/ Childcare or Family Care: No 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 Gender identity (if verbalized by the patient): Female Spiritual care concerns: No Meds Home Medications and Allergies Home Medications Medication Instructions Recorded Confirmed Type vits no.126-ferrous fum 1 tablet PO DAILY 11/27/21 01/07/22 History 28 mg iron-folic acid 800 mcg tablet (Classic ) ibuprofen 600 mg tablet 600 mg PO Q6H PRN cramps #30 tabs 01/08/22 Rx ferrous sulfate 325 mg (65 mg 325 mg PO DAILY #30 tabs 01/09/22 Rx iron) tablet hydrocodone 5 mg-acetaminophen 325 1 tablet PO Q6H PRN pain #20 tabs 01/09/22 Rx mg tablet Allergies Allergy/AdvReac Type Severity Reaction Status Date / Time citric acid Allergy Severe Anaphylaxis Verified 12/29/21 13:43 omeprazole Allergy Hives Verified 12/29/21 13:43 Exam Narrative: AVSS I/O OK ABD soft, nontender. Fundus firm, at umbilicus, and nontender. EXT nontender Assessment and Plan Assessment and plan (1) hemorrhage: Code(s): O72.1 - Other immediate hemorrhage Status: Acute Assessment and Plan: A: hemorrhage. P: Offered dilation and suction curettage in the operating room. She understood risks of surgery to include risks of anesthesia, risks of pain, infection, bleeding, blood products, thromboembolic phenomena and damage to adjacent structures such as bowel, bladder, ureters, blood vessels and nerves. She understood all these risks and elected to proceed with surgery.
--- NOTE | 2022-01-09 12:58 | WPDANESEPPF ---
Anes - Initial Pre Proc Eval Procedure: Operation Date: 01/09/22 12:30 Proposed Procedures p Suction Dilatation and Curettage - Fish Pacheco MD Date/Time: 01/09/22 12:58 Surgeon: Fish Pacheco MD Pre Op Diagnosis: IOL Patient Data Age: 36 Gender: F Height: Weight: Last Vital Signs Temp 37.5 C 01/09/22 11:43 Pulse 99 01/09/22 11:43 Resp 18 01/09/22 11:43 BP 109/56 L 01/09/22 11:43 Pulse Ox 97 01/09/22 11:43 O2 Del Method Room Air 01/09/22 01:10 Allergies Allergy/AdvReac Type Severity Reaction Status Date / Time citric acid Allergy Severe Anaphylaxis Verified 12/29/21 13:43 omeprazole Allergy Hives Verified 12/29/21 13:43 Home Medications Medication Instructions Recorded Confirmed Type vits no.126-ferrous fum 1 tablet PO DAILY 11/27/21 01/07/22 History 28 mg iron-folic acid 800 mcg tablet (Classic ) ibuprofen 600 mg tablet 600 mg PO Q6H PRN cramps #30 tabs 01/08/22 Rx hydrocodone 5 mg-acetaminophen 325 1 tablet PO Q6H PRN pain #20 tabs 01/09/22 Rx mg tablet Laboratory Tests 01/07/22 01/09/22 21:19 04:56 Hgb 8.3 g/dL L D g/dL (12.0-15.0) Hct 24.0 % L % (37.0-47.0) RPR Non-reactive (NonReactive) Patient hx anesthesia problems: none Family hx anesthesia problems: none Results Review: All pre-operative results and documents have been reviewed as part of the pre-operative evaluation. [facility] Past Medical History Medical History (Updated 01/09/22 @ 13:02 by Fish Pacheco MD) Asthma Migraine Family History Family History Mother RPE (retinal pigment epithelium) atrophy Sibling RPE (retinal pigment epithelium) atrophy Grandparent Diabetes mellitus Social History Social History Smoking status: Current every day smoker Tobacco type: e-cigarettes/vaping Second hand tobacco smoke exposure: Yes Alcohol intake: current Substance use: never Lack of Transportation: No Lack of Food: Never True Current Housing: I Have Housing Concerned About Future Housing: No Difficulty Paying Gas/Electric Bills: No Difficulty Paying for Meds: No Currently Unemployed: No Education: Don't Know Difficulty w/ Childcare or Family Care: No 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 Informed Consent: The patient's anesthetic plan and its attendant risks and benefits were discussed with the patient/family/POA. Questions were solicited and answers provided to the satisfaction of the patient/family/POA.
--- NOTE | 2022-01-09 12:59 | PM.OBPNVD ---
OB - PN: Subj Subjective Date/time seen: 01/09/22 12:59 Interval history: Comfortable, but had 150mL bleeding this morning, and an additional 400mL just now. No chest pain or SOB. BP 90/60, with pulse 90. ABD soft, nontender, fundus firm and below umbilicus. OB - PN: Obj Data Labs CBC & Chem 7: 01/09/22 04:56 Labs: Laboratory Results - last 24 hr 01/07/22 01/09/22 21:19 04:56 Hgb 8.3 L D Hct 24.0 L RPR Non-reactive OB - PN A/P Assessment and Plan (1) hemorrhage: Code(s): O72.1 - Other immediate hemorrhage Status: Acute Plan A: Heavy bleeding. Have tried oxytocin, misoprostol, TXA. Bleeding worsening. P: H/H pending. Offered dilation and suction curettage. She understands risks of surgery to include risks of anesthesia, risks of pain, infection, bleeding, blood products, thromboembolic phenomena and damage to adjacent structures such as bowel, bladder, ureters, blood vessels and nerves. She understands all these risks and elects to proceed with surgery.
[2022-01-09 13:28] LABS: Hemoglobin 6.9 g/dL (12.0-15.0)
[2022-01-09 13:29] LABS: Hematocrit 20.3 % (37.0-47.0)
[2022-01-09] MEDS: LACTATED RINGERS 1,000 ML 30 ML IV CONT (13:31)
[2022-01-09] MEDS: SODIUM CHLORIDE 0.9% IV 250 ML 30 ML IV CONT ×2 (13:51→19:15)
--- NOTE | 2022-01-09 14:05 | W.PM.PROC2 ---
Procedure Note - Detailed Date of Procedure 01/09/22 Pre-op Diagnosis hemorrhage Post-op Diagnosis Same Procedure Performed Dilation and suction curettage Surgeon Fish Pacheco MD Anesthesia General Findings Clots and possible retained placental tissue Description of Procedure The patient was taken to the operating room where she was prepared and draped in the usual sterile fashion in the dorsal lithotomy position. The bladder was drained with a red rubber catheter. A sterile speculum was placed into the vagina. Clotted blood was noted in the vaginal vault. The anterior lip of the cervix was grasped with a ring forceps. A #14 curved tip suction curette was advanced. Suction curettage was performed and products of conception were aspirated. Sharp curettage was then performed until a good uterine cry was noted. A final pass with the suction curette was made. The ring forceps was removed. Hemostasis was excellent. Sponge, lap, needle and instrument counts were correct. The patient was taken to the recovery room in stable condition. I was present and scrubbed for the entire procedure. 1 unit PRBC transfusion was begun. Estimated Blood Loss 375 Drains No Packing No Pathology Yes (Endometrial curettings) Complications None Condition Stable Disposition PACU
[2022-01-09] MEDS: fentaNYL CITRATE INJ (*CRX) 100 MCG/2 ML VIAL 25 MCG IV PUSH (15:04)
[2022-01-09] MEDS: METHYLERGONOVINE MALEATE 0.2 MG/ML VIAL IM (16:28)
[2022-01-09] MEDS: TUBING, BLOOD PLUM PUMP TUBING 1 EACH XX (18:30)
[2022-01-09] MEDS: ONDANSETRON INJ 4 MG/2 ML VIAL IV PUSH (19:13)
[2022-01-09] MEDS: BENZOCAINE 20% AER SPR (*SP) 56 GM CAN 1 SPRAY TOPICAL (19:14)
[2022-01-09] MEDS: WITCH HAZEL 40 PADS 1 PAD TOPICAL (19:15)
--- NOTE | 2022-01-09 19:31 | PC.NURSE ---
0915-RN notified Dr. Pacheco of pts increased bleeding and change of two saturated pads in 2 hr timeframe. Order given for one time dose of TXA. 1240-RN notified Dr. Pacheco of pts large QBL and expressing of several small clots. Order given to draw H & H and get pt ready to return to OR for possible D & C. 1305-Pt to OR via bed; transported by OR staff. 1330-RN notified Dr. Pacheco of critical result of prior H & H blood draw. 1540-Pt returns to 2nd floor OB unit via bed; VS are stable but pt continues to have moderate bleeding with several dime size clots noted and one substantial gush. Order given to begin IM Methergine for 24 hrs. 1630-RN calls Dr. Pacheco for clarification on orders which were discontinued prior to pt returning to floor from OR. Phone call is returned by Dr. Lilly Pascual. RN and Dr. Lilly Pascual discuss the prior orders given by Dr. Pacheco; new orders, along with some changes to prior orders are given to RN at this time.
[2022-01-09] MEDS: METHYLERGONOVINE MALEATE 0.2 MG TABLET PO (22:30)
[2022-01-10] MEDS: ONDANSETRON INJ 4 MG/2 ML VIAL IV PUSH ×2 (00:47→10:25)
[2022-01-10] MEDS: diphenhydrAMINE HCl INJ 50 MG/ML VIAL 25 MG IV PUSH (01:38)
[2022-01-10] MEDS: HYDROcodone/acetaminophen (*CRX) 5-325 MG TABLET 1 TAB PO (02:14)
[2022-01-10] MEDS: IBUPROFEN 600 MG TABLET PO ×3 (04:34→19:18)
[2022-01-10] MEDS: METHYLERGONOVINE MALEATE 0.2 MG TABLET PO (04:35)
[2022-01-10 04:37] VITALS: BP 137/65; PULSE 99; RESP 18; TEMP 36.8; O2SAT 98
--- NOTE | 2022-01-10 06:16 | P.PNOB_ITS ---
OB - PN: Subj Subjective Date/time seen: 01/10/22 06:16 Interval history: Comfortable, but had 150mL bleeding this morning, and an additional 400mL just now. No chest pain or SOB. BP 90/60, with pulse 90. ABD soft, nontender, fundus firm and below umbilicus. Patient comments: no complaints and pain well controlled [place] baby status: doing well OB - PN: Obj Data Labs CBC & Chem 7: 01/09/22 13:04 Labs: Laboratory Results - last 24 hr 01/07/22 01/09/22 21:19 13:04 Hgb 6.9 L* Hct 20.3 L* Blood Type B Positive Antibody Screen Negative Crossmatch See Detail OB - PN A/P Plan day: 1 Plan: routine care Comments: Hemoglobin pending after 2units of blood Time Spent With Patient Time: Total time spent is greater than 50% in coordination of care (as documented) at patient's floor/unit and/or counseling patient: Exam Const: General: cooperative, healthy appearing and comfortable Nutritional Appearance: average body habitus Orientation/consciousness: oriented to person, oriented to place and oriented to time Resp: Effort & Inspection: normal respiratory effort GI: Inspection: normal to inspection (Fundus firm below the umbilicus)
[2022-01-10 06:28] LABS: Hematocrit 25.7 % (37.0-47.0); Hemoglobin 8.8 g/dL (12.0-15.0)
[2022-01-10 08:00] VITALS: BP 107/61; PULSE 87; RESP 16; TEMP 36.8; O2SAT 98
[2022-01-10] MEDS: MULTIVIT/MIN/PREN/FOL AC/IRON TABLET 1 TAB PO (10:25)
[2022-01-10] MEDS: POLYSACCHARIDE IRON COMPLEX 150 MG CAPSULE PO ×2 (10:25→16:22)
[2022-01-10] MEDS: DOCUSATE SODIUM 100 MG CAPSULE PO ×2 (10:25→16:22)
[2022-01-10 10:30] VITALS: PULSE 87; RESP 16; O2SAT 98
--- NOTE | 2022-01-10 10:57 | WPDANESPN ---
Anes - Prog Note Post-Op Date/Time: 01/10/22 10:57 Cardiovascular status: normal Respiratory status: normal Airway patency: baseline Mental status: baseline Post-Op hydration status: normal Vital Signs: Last Vital Signs Temp 36.8 C 01/10/22 08:00 Pulse 87 01/10/22 08:00 Resp 16 01/10/22 08:00 BP 107/61 01/10/22 08:00 Pulse Ox 98 01/10/22 08:00 O2 Del Method Room Air 01/09/22 21:00 O2 Flow Rate 8 01/09/22 15:00 Pain Score (VAS): 02/26 I/O: Intake & Output 01/09/22 01/10/22 01/10/22 23:59 07:59 15:59 Intake Total 330 Balance 330 Laboratory Tests 01/10/22 04:30 01/07/22 01/09/22 01/10/22 21:19 13:04 04:30 Hgb 6.9 L* 8.8 L Hct 20.3 L* 25.7 L Blood Type B Positive Antibody Screen Negative Crossmatch See Detail Post-procedural complaints: none Patient Feedback: Patient satisfied with anesthetic care.
[2022-01-10 12:00] VITALS: BP 112/72; PULSE 89; RESP 16; TEMP 36.7; O2SAT 100
[2022-01-10 12:52] LABS: Glucose Point of Care 125 mg/dl (65-105)
[2022-01-10] MEDS: ACETAMINOPHEN 325 MG TABLET 650 MG PO (16:22)
[2022-01-10 20:18] VITALS: BP 115/55; PULSE 88; RESP 18; TEMP 36.6; O2SAT 100
--- NOTE | 2022-01-11 06:31 | P.PNOB_ITS ---
OB - PN: Subj Subjective Date/time seen: 01/11/22 06:31 Interval history: Comfortable, but had 150mL bleeding this morning, and an additional 400mL just now. No chest pain or SOB. BP 90/60, with pulse 90. ABD soft, nontender, fundus firm and below umbilicus. Patient comments: no complaints and pain well controlled [place] baby status: doing well OB - PN: Obj Data Labs CBC & Chem 7: 01/10/22 04:30 Labs: Laboratory Results - last 24 hr 01/10/22 01/10/22 04:30 12:47 Hgb 8.8 L Hct 25.7 L POC Capillary Glucose 125 H OB - PN A/P Plan day: 2 Plan: routine care, discharge home and follow up 6 weeks (4 weeks) Time Spent With Patient Time: Total time spent is greater than 50% in coordination of care (as documented) at patient's floor/unit and/or counseling patient: Time with patient: less than 15 minutes Exam Const: General: cooperative, healthy appearing and comfortable Nutritional Appearance: average body habitus Orientation/consciousness: oriented to person, oriented to place and oriented to time HENMT: Head: normal to inspection Resp: Effort & Inspection: normal respiratory effort GI: Inspection: normal to inspection (Fundus firm below the umbilicus)
[2022-01-11 07:40] VITALS: BP 103/54; PULSE 86; RESP 18; TEMP 37.4; O2SAT 97
[2022-01-11] MEDS: ACETAMINOPHEN 325 MG TABLET 650 MG PO (09:09)
[2022-01-11] MEDS: WITCH HAZEL 40 PADS 1 PAD TOPICAL (09:10)
[2022-01-11] MEDS: DOCUSATE SODIUM 100 MG CAPSULE PO (09:10)
[2022-01-11] MEDS: POLYSACCHARIDE IRON COMPLEX 150 MG CAPSULE PO (09:10)
[2022-01-11] MEDS: MULTIVIT/MIN/PREN/FOL AC/IRON TABLET 1 TAB PO (09:10)
[2022-01-11 09:44] VITALS: PULSE 86; RESP 18; O2SAT 97
[2022-01-12 11:38] VITALS: BP 123/65; PULSE 94; RESP 20; TEMP 36.8; O2SAT 99
== END 2022-01-11 12:35 | disposition home or self-care (01) | DRG 541 ==
LOC: ANHLDR 01-08 21:45 → ANHOB2 01-09 12:57 → ANHLDR 01-14 11:23 → ANHOB2 01-14 11:23
PROVIDERS: Admitting Provider Obstetrics & Gynecology; PCP Obstetrics & Gynecology; Visit Provider Obstetrics & Gynecology
PROC: 10D17ZZ Extraction of Products of Conception, Retained, Via Natural or Artificial Opening (ICD-10-PCS; principal; 2022-01-09 12:30)
DX: O99.824 Streptococcus B carrier state complicating childbirth (principal); Z37.0 Single live birth; Z3A.39 39 weeks gestation of pregnancy; O70.1 Second degree perineal laceration during delivery; O66.0 Obstructed labor due to shoulder dystocia; O44.43 Low lying placenta NOS or without hemorrhage, third trimester; O72.2 Delayed and secondary postpartum hemorrhage
CPT/HCPCS: 36415; 36430; 82948; 85014; 85018; 85025; 86592; 86850; 86900; 86901; 86920; 88305; 88307; A9270; J0131; J0290; J0330; J1100; J1200; J2210; J2250; J2405; J2590; J2704; J2795; J3010; J7050; J7120; P9016

== ENCOUNTER 2022-10-23 08:40 | Outpatient (RCR) | payer OTHER, SELFPAY ==
[2022-10-14 13:06] LABS: Beta HCG Quantitative 82.61 mIU/ML
[2022-10-16 16:20] LABS: Beta HCG Quantitative 20.18 mIU/ML
[2022-10-23 10:13] LABS: Beta HCG Quantitative < 2.39 mIU/ML
== END 2023-01-12 23:59 | disposition home or self-care (01) ==
LOC: ANHLAB 08:40
PROVIDERS: PCP Obstetrics & Gynecology; Visit Provider Obstetrics & Gynecology Gynecology
DX: O26.851 Spotting complicating pregnancy, first trimester (principal); O03.9 Complete or unspecified spontaneous abortion without complication; Z3A.00 Weeks of gestation of pregnancy not specified
CPT/HCPCS: 36415; 84702; 85461; 86850; 86870; 86880; 86886; 86900; 86901; 86902; 86905

== ENCOUNTER 2023-06-24 07:51 | Outpatient (CLI) | payer OTHER, SELFPAY ==
[2023-06-24 08:44] LABS: Alanine Aminotransferase 38 U/L (6-35); Albumin Level 4.5 g/dL (3.5-5.1); Alkaline Phosphatase 75 U/L (38-126); Anion Gap 8 mmol/L (4-12); Aspartate Amino Transferase 30 U/L (14-36); Bilirubin,Total 0.5 mg/dL (0.2-1.3); Blood Urea Nitrogen 13 mg/dL (7-17); Carbon Dioxide 23 mmol/L (22-30); Chloride 107 mmol/L (98-107); Cholesterol 183 mg/dL (0-200); Estimated Glomerular Filt Rate > 60; Glucose 103 mg/dL (65-110); HDL Direct 72 mg/dL; Potassium 4.3 mmol/L (3.4-5.0); Sodium 138 mmol/L (137-145); Triglycerides 67 mg/dL (<150)
[2023-06-24 08:55] LABS: LDL Cholesterol Direct 87 mg/dL
== END 2023-06-24 07:52 | disposition home or self-care (01) ==
LOC: ANHLAB 07:52
PROVIDERS: PCP Nurse Practitioner Family; Visit Provider Nurse Practitioner Family
DX: Z13.220 Encounter for screening for lipoid disorders (principal)
CPT/HCPCS: 36415; 80053; 80061

== ENCOUNTER 2023-07-03 10:26 | Outpatient (CLI) | payer OTHER, SELFPAY ==
--- NOTE | ~2023-07-03 | CT_ITS ---
EXAMINATION:CT diagnostic chest w con DATE: 07/03/2023 10:52 INDICATION: 1.4 cm pulmonary nodule. TECHNIQUE: Computed tomography (CT) of the chest was performed with 75 mL Omnipaque 350 intravenous c ontrast. Automated exposure control and iterative reconstruction technique were employed. The dose-le ngth product (DLP) was 180.64 mGy-cm. COMPARISON: CT abdomen and pelvis 01/30/2021 FINDINGS: The lungs demonstrate mild atelectasis. There is a 1.0 cm nodule in right lung lower lobe. No pleural effusion. The heart size is normal. No pericardial effusion. There are no pathologically e nlarged lymph nodes. There is mild thoracic spondylosis. IMPRESSION: 1. 1.0 cm pulmonary nodule. The nodule was reportedly bigger on the prior CT suggesting infection, bu t direct comparison with that exam is recommended. Reviewed, dictated and finalized at location E. IMPRESSION: 1. 1.0 cm pulmonary nodule. The nodule was reportedly bigger on the prior CT jones ggesting infection, but direct comparison with that exam is recommended.
== END 2023-07-03 10:27 | disposition home or self-care (01) ==
LOC: ANHIMG 10:27
PROVIDERS: PCP Nurse Practitioner Family; Visit Provider Nurse Practitioner Family
DX: R91.1 Solitary pulmonary nodule (principal)
CPT/HCPCS: 71260; Q9967

== ENCOUNTER 2023-10-13 09:00 | Emergency (ER) | payer OTHER, SELFPAY ==
[2023-10-13 09:14] VITALS: BP 113/68; PULSE 76; RESP 18; TEMP 36.9; O2SAT 98
--- NOTE | 2023-10-13 09:33 | ED.URI ---
HPI - URI/Sore Throat General Chief Complaint: Upper Respiratory Infection Stated Complaint: Sinus Time Seen by Provider: 10/13/23 09:33 Source: patient, RN notes reviewed and old records reviewed Mode of arrival: ambulatory Limitations: no limitations History of Present Illness HPI Narrative: 29-year-old female presents to the [facility] with complaints of 2 days of sore throat, runny nose, cough Reports taking Tylenol Denies any other symptoms such as fever, chest pain, shortness of breath Related Data Home Medications Medication Instructions Recorded Confirmed norethindrone (contraceptive) 0.35 0.35 mg PO DAILY 06/23/23 10/13/23 mg tablet phentermine 37.5 mg capsule 30 mg PO DAILY 10/13/23 10/13/23 Allergies Allergy/AdvReac Type Severity Reaction Status Date / Time citric acid Allergy Severe Anaphylaxis Verified 10/13/23 09:21 omeprazole Allergy Hives Verified 10/13/23 09:21 Review of Systems Review of Systems: All systems reviewed & are unremarkable except as noted in HPI and below Constitutional: Constitutional: Reports no additional constitutional complaints Eyes: Eyes: Reports no additional eye complaints ENT: Reports as per HPI, Reports nasal discharge and Reports sore throat Cardiovascular: Cardiovascular: Reports no additional cardiovascular complaints, Denies chest pain and Denies dyspnea Respiratory: Respiratory: Reports as per HPI, Denies chest congestion, Reports cough and Denies dyspnea Gastrointestinal: Gastrointestinal: Reports no additional gastrointestinal complaints, Denies abdominal pain, Denies nausea and Denies vomiting Musculoskeletal: Musculoskeletal: Reports no additional musculoskeletal complaints Integumentary/Breasts: Skin/Breast: Reports system reviewed and no additional complaints, except as docu Neurologic: Reports system reviewed and no additional complaints, except as documented Psychiatric: Psychiatric: Reports no additional psychiatric complaints Allergic/Immunologic: Allergic/Immunologic: Reports no additional allergic/immunologic complaints [facility] Past Medical History Medical History Asthma Migraine Family History Family History Mother RPE (retinal pigment epithelium) atrophy Diabetes mellitus Hypertension Sibling RPE (retinal pigment epithelium) atrophy Diabetes mellitus Hypertension Depression Grandparent Diabetes mellitus Hypertension Social History Social History Smoking status: Current every day smoker Tobacco type: e-cigarettes/vaping Second hand tobacco smoke exposure: Yes Alcohol intake: current Substance use: never Do You Feel Safe in your Home?: Yes Lack of Transportation: No Lack of Food: Never True Current Housing: I Have Housing Concerned About Future Housing: No Difficulty Paying Gas/Electric Bills: No Difficulty Paying for Meds: No Currently Unemployed: No Education: High School Diploma/GED Difficulty w/ Childcare or Family Care: No Living arrangements: with family Occupation/Education: occupation 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 There is no relevant family history pertinent to the patient complaint. Exam Const: General: cooperative, healthy appearing, comfortable, no acute distress, well developed, alert and well nourished Nutritional Appearance: well nourished Orientation/consciousness: patient oriented x3 Limitations: no limitations HENMT: Head: normal to inspection Ears: hearing grossly normal bilaterally, external ears normal, TM's normal bilaterally, EAC's normal, mastoids normal
[2023-10-13 10:00] LABS: EDSTREPNEGPOS1 Negative
== END 2023-10-13 10:15 | disposition home or self-care (01) ==
PROVIDERS: Emergency Provider Nurse Practitioner; PCP Family Medicine Adolescent Medicine
DX: J02.9 Acute pharyngitis, unspecified (principal); Z20.818 Contact with and (suspected) exposure to other bacterial communicable diseases; F17.290 Nicotine dependence, other tobacco product, uncomplicated; J45.909 Unspecified asthma, uncomplicated
CPT/HCPCS: 87081; 87880; 99213; G0463

== ENCOUNTER 2024-11-19 16:08 | Emergency (ER) | payer OTHER, SELFPAY ==
--- NOTE | ~2024-11-19 | US_ITS ---
EXAMINATION: US OB <= 14 weeks fetus DATE: 11/19/2024 19:26 INDICATION: Vaginal bleeding during . TECHNIQUE: Real-time transabdominal and transvaginal pelvic ultrasound was performed. COMPARISON: None. FINDINGS: TRANSABDOMINAL ULTRASOUND: The uterus measures 7.8 x 3.6 x 4.9 cm. TRANSVAGINAL ULTRASOUND: There are 2 cysts in the endometrial complex measuring 6 mm and 4 mm, respectively. The cysts as indeterminate for gestational sac(s). A gestational sac of 6 mm would correlate with an estimated gestational age of 5 weeks and 2 days with an estimated date of delivery of 07/20/2025. No yolk sac or pole is identified. The right ovary measures 2.2 x 2.0 x 2.5 cm. The left ovary measures 1.5 x 2.6 x 3.0 cm. There is no free fluid in the pelvis. IMPRESSION: 1. Two cysts in the endometrial complex, which are indeterminate for gestational sac(s). Ectopic is not excluded. Considerable serial beta- hCGs and follow-up ultrasound. Reviewed, dictated and finalized at location E. IMPRESSION: 1. Two cysts in the endometrial complex, which are indeterminate for gestation al sac(s). Ectopic is not excluded. Considerable serial beta-hCGs and follow-up ultrasound.
[2024-11-19 16:14] VITALS: BP 131/80; PULSE 87; RESP 18; TEMP 36.4; O2SAT 99
--- NOTE | 2024-11-19 19:03 | ED.PREGNANCY ---
HPI - General Chief complaint: Vaginal Bleeding Stated complaint: VAG BLEED, PREG NEEDS US AND LABS FOR MISCARRIAGE Time Seen by Provider: 11/19/24 17:55 History of Present Illness HPI Narrative: Patient is a 38-year-old female who presents to the ER with concerns of a miscarriage. She reports she believes she is approximately 7 weeks . Her last menstrual period was October 01, 2024. Patient reports she has been having dark brown vaginal bleeding that looks like coffee grounds at times. 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 Patient endorses a medical history of K Maru A after developing a blood antibody. She denies any other pertinent medical history. Patient reports she has an OBGYN, Dr. Shelton, who advised patient to come into the ER for further evaluation. She denies any abdominal cramping, nausea and vomiting, or urinary symptoms. Related Data Home Medications ?Medication ?Instructions ?Recorded ?Confirmed ?Last Taken ?Type norethindrone (contraceptive) 0.35 0.35 mg PO DAILY 06/23/23 10/13/23 Unknown History mg tablet phentermine 37.5 mg capsule 30 mg PO DAILY 10/13/23 10/13/23 Unknown History Allergies Allergy/AdvReac Type Severity Reaction Status Date / Time citric acid Allergy Severe Anaphylaxis Verified 11/19/24 16:09 omeprazole Allergy Hives Verified 11/19/24 16:09 Review of Systems Review of Systems: All systems reviewed & are unremarkable except as noted in HPI and below PMFSH Past Medical History Medical History Migraine Asthma Family History Family History Mother RPE (retinal pigment epithelium) atrophy Diabetes mellitus Hypertension Sibling RPE (retinal pigment epithelium) atrophy Diabetes mellitus Hypertension Depression Grandparent Diabetes mellitus Hypertension Social History Social History Smoking status: Current every day smoker Tobacco type: e-cigarettes/vaping Second hand tobacco smoke exposure: Yes Alcohol intake: current Substance use: never Do You Feel Safe in your Home?: Yes Lack of Transportation: No Lack of Food: Never True Current Housing: I Have Housing Concerned About Future Housing: No Difficulty Paying Gas/Electric Bills: No Difficulty Paying for Meds: No Currently Unemployed: No Education: High School Diploma/GED Difficulty w/ Childcare or Family Care: No Living arrangements: with family Occupation/Education: occupation 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 HEAD: Normocephalic, atraumatic. NECK: Supple. No adenopathy, no masses. RESPIRATORY: Airway patent, respirations nonlabored. Clear to auscultation bilaterally, no rales, rhonchi, wheezing. CARDIOVASCULAR: Regular rate and rhythm without murmurs, rubs, or gallops. Peripheral pulses 2+ and equal bilaterally. ABDOMINAL: Soft, nontender, nondistended, no hepatosplenomegaly. Normoactive BS. MUSCULOSKELETAL: Moves all extremities. Strength/ROM intact without gross deformities. SKIN: Warm, dry, normal color. No rashes. NEURO: A&O X3. Speech clear. Cranial nerves II-XII intact. No ataxic movements. PSYCHIATRIC: Appropriate mood and affect. Normal interaction. Course Vital Signs Vital signs: Vital Signs Temperature 36.4 C 11/19/24 16:14 Pulse Rate 87 11/19/24 16:14 Respiratory Rate 18 11/19/24 16:14 Blood Pressure 131/80 11/19/24 16:14 Pulse Oximetry 99 11/19/24 16:14 Oxygen Delivery Room Air 11/19/24 16:14 Temperature 36.4 C 11/19/24 16:14 Pulse Rate 87 11/19/24 16:14 Respiratory Rate 18 11/19/24 16:14 Blood Pressure 131/80 11/19/24 16:14 Pulse Oximetry 99 11/19/24 16:14 Oxygen Delivery Room Air 11/19/24 16:14 MDM - OB/Uterine Contractions MDM Narrative Medical decision making narrative: Patient is a 38-year-old female who presents to the ER with concerns of a miscarriage. She reports she believes she is approximately 7 weeks . Her last menstrual period was October 01, 2024. Patient reports she has been having dark brown vaginal bleeding that looks like coffee grounds at times. 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 Patient endorses a medical history of K Maru A after developing a blood antibody. She denies any other pertinent medical history. Patient reports she has an OBGYN, Dr. Shelton, who advised patient to come into the ER for further evaluation. She denies any abdominal cramping, nausea and vomiting, or urinary symptoms. Labs Ordered: CBC, CMP, beta hCG, UA, PTT, INR, antibody identification, Rh immunoglobulin, direct [facility] Imaging Ordered: Ultrasound Ob transvaginal Medications Ordered: 1 L normal saline IV bolus, Keflex p.o. Results: Patient's ultrasound indicates intrauterine of uncertain prognosis. There are adjacent cystic formations in the fundal endometrium, the largest measuring 5.7 mm. This could represent a gestational sac corresponding to 5 weeks, 2 days. No yolk sac or pole visible. Additional smaller cystic formations are seen in the region which are nonspecific. Correlation with serial quantitative hCG and continued clinical and imaging follow-up advised. Both ovaries visualized. No torsion or mass. Diagnosis: Threatened miscarriage, intrauterine of uncertain prognosis, urinary tract infection Consults: OBGYN (Dr. Shelton), outpatient Patient Education/Shared MDM: Results of lab work and imaging shared with patient. She will be given her first dose of oral antibiotic here in the ER to treat her UTI. Patient strongly advised to maintain hydration status upon discharge and follow-up with her OBGYN as soon as possible. She will be discharged home with a prescription for Keflex. Strict return precautions provided. Patient verbalized understanding and is in agreement with plan. Vital signs stable at time of discharge. All questions answered. Differential Diagnosis Differential diagnosis: Likely other (Threatened miscarriage, urinary tract infection, intrauterine , abnormal vaginal bleeding) Lab Data Attestation: I reviewed the patient's lab results. 11/19/24 20:10 11/19/24 20:10 Labs: Lab Results 11/19/24 11/19/24 11/19/24 Range/Units 19:02 20:06 20:09 WBC (4.5-10.0) K/mm3 RBC (4.2-5.4) M/mm3 Hgb (12.0-15.0) g/dL Hct (37.0-47.0) % MCV (80-100) fl MCH (26-34) pg MCHC (32-36) g/dl RDW (11.5-14.5) % Plt Count (150-375) k/mm3 MPV (7.4-10.4) fl Immature Gran % (Auto) (0-0.5) % Neut % (Auto) (45.5-73.1) % Lymph % (Auto) (18.3-44.2) % [place] % (Auto) (2.6-8.5) % Eos % (Auto) (0-4.4) % Baso % (Auto) (0.2-1.2) % Lymph # (Auto) (0.9-3.2) K/mm3 [place] # (Auto) (0.1-0.6) K/mm3 Eos # (Auto) (0-0.3) K/mm3 Baso # (Auto) (0.0-0.1) K/mm3 Abs Immat Gran (auto) (0.00-0.031) K/mm3 Absolute Neuts (auto) (1.3-6.7) K/mm3 Absolute Nucleated RBC (0.0-0.012) K/mm3 Nucleated RBC % (0.0-0.2) % PT 12.6 (11.1-14.7) Seconds INR 0.9 APTT 25.0 (22.3-36.8) Seconds Sodium (137-145) mmol/L Potassium (3.4-5.0) mmol/L Chloride (98-107) mmol/L Carbon Dioxide (22-30) mmol/L Anion Gap (4-12) mmol/L BUN (7-17) mg/dL Creatinine (0.7-1.0) mg/dL Estim Creat Clear Calc Estimated GFR (59 - ) Glucose (65-110) mg/dL Calcium (8.4-10.2) mg/dL Total Bilirubin (0.2-1.3) mg/dL AST (14-36) U/L ALT (6-35) U/L Alkaline Phosphatase (38-126) U/L Total Protein (6.3-8.2) g/dL Albumin (3.5-5.1) g/dL Beta HCG, Quant mIU/ML Urine Color Dark yellow (Yellow) Urine Appearance Cloudy H (Clear) Urine pH 6.0 (5.0-9.0) Ur Specific [place] 1.033 (1.001-1.035) Urine Protein 1+ H (Negative) mg/dL Urine Glucose (UA) Negative (Negative) mg/dL Urine Ketones Trace H (Negative) mg/dL Ur Blood (Man) 3+ H (Negative) Urine Nitrate Negative (Negative) Urine Bilirubin Negative (Negative) Urine Urobilinogen 1.0 (<2.0) mg/dL Leukocyte Esterase Rfl 1+ H (Negative) ARMANDO/UL Urine RBC 51-100 H (0-2) /hpf Urine WBC 11-20 H (0-3) /hpf Ur Squamous Epith Cells Moderate (Few) /hpf Calcium Oxalate Crystal Present (None) /hpf Urine Bacteria 3+ H /hpf Urine Casts 0-2 POC Urine HCG, Qual Positive (Negative) Blood Type Antibody Screen Antibody Identification Antigen Identification REG, IgG Interpret REG, Poly Interpret REG, Complement Interp Screen Baby's Blood Type Baby's REG Doses of RhIg Required 11/19/24 Range/Units 20:10 WBC 10.6 H (4.5-10.0) K/mm3 RBC 4.59 (4.2-5.4) M/mm3 Hgb 13.2 D (12.0-15.0) g/dL Hct 39.9 (37.0-47.0) % MCV 86.9 (80-100) fl MCH 28.8 (26-34) pg MCHC 33.1 (32-36) g/dl RDW 13.2 (11.5-14.5) % Plt Count 284 D (150-375) k/mm3 MPV 11.1 H (7.4-10.4) fl Immature Gran % (Auto) 0.7 H (0-0.5) % Neut % (Auto) 66.4 (45.5-73.1) % Lymph % (Auto) 23.4 (18.3-44.2) % [place] % (Auto) 6.3 (2.6-8.5) % Eos % (Auto) 2.9 (0-4.4) % Baso % (Auto) 0.3 (0.2-1.2) % Lymph # (Auto) 2.48 (0.9-3.2) K/mm3 [place] # (Auto) 0.7 H (0.1-0.6) K/mm3 Eos # (Auto) 0.3 (0-0.3) K/mm3 Baso # (Auto) 0.0 (0.0-0.1) K/mm3 Abs Immat Gran (auto) 0.07 H (0.00-0.031) K/mm3 Absolute Neuts (auto) 7.1 H (1.3-6.7) K/mm3 Absolute Nucleated RBC 0.000 (0.0-0.012) K/mm3 Nucleated RBC % 0.0 (0.0-0.2) % PT (11.1-14.7) Seconds INR APTT (22.3-36.8) Seconds Sodium 138 (137-145) mmol/L Potassium 3.5 (3.4-5.0) mmol/L Chloride 103 (98-107) mmol/L Carbon Dioxide 26 (22-30) mmol/L Anion Gap 9 (4-12) mmol/L BUN 11 (7-17) mg/dL Creatinine 0.72 (0.7-1.0) mg/dL Estim Creat Clear Calc Not Reportable Estimated GFR > 60 (59 - ) Glucose 99 (65-110) mg/dL Calcium 9.5 (8.4-10.2) mg/dL Total Bilirubin 0.3 (0.2-1.3) mg/dL AST 75 H (14-36) U/L ALT 86 H (6-35) U/L Alkaline Phosphatase 249 H (38-126) U/L Total Protein 8.0 (6.3-8.2) g/dL Albumin 4.1 (3.5-5.1) g/dL Beta HCG, Quant 8412.40 mIU/ML Urine Color (Yellow) Urine Appearance (Clear) Urine pH (5.0-9.0) Ur Specific [place] (1.001-1.035) Urine Protein (Negative) mg/dL Urine Glucose (UA) (Negative) mg/dL Urine Ketones (Negative) mg/dL Ur Blood (Man) (Negative) Urine Nitrate (Negative) Urine Bilirubin (Negative) Urine Urobilinogen (<2.0) mg/dL Leukocyte Esterase Rfl (Negative) ARMANDO/UL Urine RBC (0-2) /hpf Urine WBC (0-3) /hpf Ur Squamous Epith Cells (Few) /hpf Calcium Oxalate Crystal (None) /hpf Urine Bacteria /hpf Urine Casts POC Urine HCG, Qual (Negative) Blood Type B Positive Antibody Screen Positive Antibody Identification Pending Antigen Identification Cancelled REG, IgG Interpret Pending REG, Poly Interpret Pending REG, Complement Interp Pending Screen Pending Baby's Blood Type Pending Baby's REG Pending Doses of RhIg Required Pending Imaging Data Attestation: I personally reviewed and interpreted this imaging study as follows: Radiologist's impression: Patient's ultrasound indicates intrauterine of uncertain prognosis. There are adjacent cystic formations in the fundal endometrium, the largest measuring 5.7 mm. This could represent a gestational sac corresponding to 5 weeks, 2 days. No yolk sac or pole visible. Additional smaller cystic formations are seen in the region which are nonspecific. Correlation with serial quantitative hCG and continued clinical and imaging follow-up advised. Both ovaries visualized. No torsion or mass. Discharge Plan Discharge Clinical Impression: Threatened , Urinary tract infection, Vaginal bleeding Patient Disposition: Home Condition: Stable Instructions: Antibiotic Form, Threatened Miscarriage (ED), Urinary Tract Infection in (ED) Additional Instructions: Please return to the ER with any worsening symptoms. Follow-up with your OBGYN as soon as possible for repeat levels. Please complete your full dose of antibiotics. Remember to drink lots of water. Patient Language: Hungarian Prescriptions: New cephalexin 500 mg capsule 500 mg PO Q8H 7 Days Qty: 21 0RF No Action phentermine 37.5 mg capsule 30 mg PO DAILY amoxicillin 500 mg tablet 500 mg PO Q12H Qty: 20 0RF norethindrone (contraceptive) 0.35 mg tablet 0.35 mg PO DAILY topiramate 50 mg tablet 50 mg PO QHS Qty: 30 0RF Rx Instructions: 1/2 tab x 4 nights then 1 tab nightly Follow-up/Referrals: Samantha Shelton MD [Physician, AUDIO VISUAL AIDS DIRECTOR] Referral Note: Marshal Godfrey MD [Primary Care Provider, Family Practice] Stand Alone Forms: Work/School Release IP Time of Disposition: 23:20
[2024-11-19 19:04] LABS: BEDSIDEPREGUCG Positive (Negative)
[2024-11-19] MEDS: SODIUM CHLORIDE 0.9% IV 1,000 ML 999 ML IV CONT (20:08)
[2024-11-19 20:16] LABS: Hematocrit 39.9 % (37.0-47.0); Hemoglobin 13.2 g/dL (12.0-15.0); Immature Granulocyte Percent A 0.7 % (0-0.5); Lymphocytes Absolute Auto 2.48 K/mm3 (0.9-3.2); Mean Corpuscular HGB Conc 33.1 g/dl (32-36); Mean Corpuscular Hemoglobin 28.8 pg (26-34); Mean Corpuscular Volume 86.9 fl (80-100); Nucleated Red Blood Cells Absolute Auto 0.000 K/mm3 (0.0-0.012); Nucleated Red Blood Cells Perc 0.0 % (0.0-0.2); Platelet Count Result 284 k/mm3 (150-375); Red Blood Count 4.59 M/mm3 (4.2-5.4); White Blood Count 10.6 K/mm3 (4.5-10.0)
[2024-11-19 20:26] LABS: Add Urine Microscopic? YES; Appearance Urine Cloudy (Clear); Glucose Urine UA Negative (Negative); Leukocyte Esterase Ur 1+ LEU/UL (Negative); Nitrate Urine Negative (Negative); Non Pathogenic Casts 0-2; Specific Grav Ur 1.033 (1.001-1.035)
[2024-11-19 20:27] LABS: INR 0.9; Prothrombin Time 12.6 Seconds (11.1-14.7)
[2024-11-19 20:28] LABS: Partial Thromboplastin Time 25.0 Seconds (22.3-36.8)
[2024-11-19 20:30] LABS: Alanine Aminotransferase 86 U/L (6-35); Albumin Level 4.1 g/dL (3.5-5.1); Alkaline Phosphatase 249 U/L (38-126); Anion Gap 9 mmol/L (4-12); Aspartate Amino Transferase 75 U/L (14-36); Bilirubin,Total 0.3 mg/dL (0.2-1.3); Blood Urea Nitrogen 11 mg/dL (7-17); Calcium 9.5 mg/dL (8.4-10.2); Carbon Dioxide 26 mmol/L (22-30); Chloride 103 mmol/L (98-107); Estimated Glomerular Filt Rate > 60; Glucose 99 mg/dL (65-110); Potassium 3.5 mmol/L (3.4-5.0); Sodium 138 mmol/L (137-145); Total Protein 8.0 g/dL (6.3-8.2)
[2024-11-19 20:45] LABS: Beta HCG Quantitative 8412.40 mIU/ML
[2024-11-19] MEDS: CEPHALEXIN 500 MG CAPSULE PO (22:14)
[2024-11-19 23:34] VITALS: BP 136/75; PULSE 77; RESP 18; O2SAT 99
== END 2024-11-19 23:35 | disposition home or self-care (01) ==
PROVIDERS: Emergency Provider Registered Nurse; PCP Family Medicine Adolescent Medicine
DX: O20.0 Threatened abortion (principal); O23.41 Unspecified infection of urinary tract in pregnancy, first trimester; N39.0 Urinary tract infection, site not specified; O99.511 Diseases of the respiratory system complicating pregnancy, first trimester; J45.909 Unspecified asthma, uncomplicated; O99.331 Smoking (tobacco) complicating pregnancy, first trimester; F17.290 Nicotine dependence, other tobacco product, uncomplicated; Z3A.01 Less than 8 weeks gestation of pregnancy
CPT/HCPCS: 36415; 76801; 80053; 81001; 81025; 84702; 85025; 85461; 85610; 85730; 86850; 86880; 86900; 86901; 86902; 96360; 99284; A9270; J7030

== ENCOUNTER 2024-11-26 09:54 | Outpatient (CLI) | payer OTHER, SELFPAY ==
[2024-11-26 10:49] LABS: Hematocrit 42.8 % (37.0-47.0); Hemoglobin 14.1 g/dL (12.0-15.0); Mean Corpuscular HGB Conc 32.9 g/dl (32-36); Mean Corpuscular Hemoglobin 29.0 pg (26-34); Mean Corpuscular Volume 87.9 fl (80-100); Platelet Count Result 324 k/mm3 (150-375); Red Blood Count 4.87 M/mm3 (4.2-5.4); White Blood Count 9.2 K/mm3 (4.5-10.0)
[2024-11-26 11:30] LABS: Beta HCG Quantitative 12990.00 mIU/ML
== END 2024-11-26 09:55 | disposition home or self-care (01) ==
PROVIDERS: PCP Family Medicine Adolescent Medicine
DX: O20.0 Threatened abortion (principal); Z3A.00 Weeks of gestation of pregnancy not specified
CPT/HCPCS: 36415; 84702; 85027; 86870; 86886; 86900; 86901

== ENCOUNTER 2024-12-01 13:31 | Outpatient (CLI) | payer OTHER, SELFPAY ==
--- NOTE | ~2024-12-01 | US_ITS ---
EXAMINATION: US OB <=14 wk fetus w TV DATE: 12/01/2024 14:18 INDICATION: Spotting during first trimester TECHNIQUE: Real-time pelvic ultrasound utilizing both a transvaginal and transabdominal probe was performed. The interpreting radiologist was not present for the study. COMPARISON: None. FINDINGS: The uterus measures 8.7 x 3.8 x 6.4 cm. There are a couple small relatively well-defined spherical anechoic fluid collections at the uterine fundus without evident internal yolk sacs or poles, nonetheless suggestive of dichorionic diamniotic with 2 separate gestational sacs. Mean sac diameters measure 9 mm and 6 mm, which are below range for accurate assessment for estimated gestational age. The right ovary measures 2.9 x 2.3 x 1.3 cm. The left ovary measures 3.4 x 2.3 x 1.7 cm. Vascular flow identified at both ovaries on color Doppler. There is no free fluid in the pelvis. IMPRESSION: 1. Separate 9 mm and 6 mm anechoic fluid collection within the uterine fundus suggestive of separate gestational sacs without discernible yolk sac or pole likely due to to early stage of . Consider follow-up with serial beta-hCG levels and repeat imaging in several days for assessment of viability and estimated gestational age. Reviewed, dictated and finalized at location A. IMPRESSION: 1. Separate 9 mm and 6 mm anechoic fluid collection within the uterine fundus s uggestive of separate gestational sacs without discernible yolk sac or po le likely due to to early stage of . Consider follow-up with serial be ta-hCG levels and repeat imaging in several days for assessment of viability an d estimated gestational age.
== END 2024-12-01 13:32 | disposition home or self-care (01) ==
PROVIDERS: PCP Family Medicine Adolescent Medicine; Visit Provider Nurse Practitioner
DX: O26.851 Spotting complicating pregnancy, first trimester (principal); Z3A.00 Weeks of gestation of pregnancy not specified
CPT/HCPCS: 76801; 76817

== ENCOUNTER 2024-12-13 10:02 | Outpatient (CLI) | payer OTHER, SELFPAY ==
[2024-12-13 11:11] LABS: Beta HCG Quantitative 7754.20 mIU/ML
== END 2024-12-13 10:03 | disposition home or self-care (01) ==
LOC: ANHLAB 10:06
PROVIDERS: PCP Family Medicine Adolescent Medicine; Visit Provider Obstetrics & Gynecology Gynecology
DX: O20.0 Threatened abortion (principal); Z3A.00 Weeks of gestation of pregnancy not specified
CPT/HCPCS: 36415; 84702

== ENCOUNTER 2024-12-15 15:28 | Outpatient (CLI) | payer OTHER, SELFPAY ==
--- NOTE | ~2024-12-15 | US_ITS ---
EXAMINATION: US OB <=14 wk fetus w TV DATE: 12/15/2024 16:33 INDICATION: Spotting during first trimester TECHNIQUE: Real-time pelvic ultrasound utilizing both a transvaginal and transabdominal probe was performed. The interpreting radiologist was not present for the study. COMPARISON: None. FINDINGS: The uterus measures 8.6 x 4.4 x 4.4 cm. There are 2 small ovoid fluid collections with echogenic rims positioned eccentrically within the endometrial complex at the uterine fundus which are suspicious for a twin with pair of gestational sacs. No real sac or pole identified within either presumptive gestational sac. The mean sac diameters measure 10 mm and 6 mm. There is small amount of more irregular hypoechoic fluid positioned along the caudal margin of the presumptive gestational sacs which measures 1.8 x 1.5 x 0.8 cm consistent with small subchorionic hematoma. The right ovary measures 2.9 x 2.3 x 1.7 cm. The left ovary measures 3.4 x 1.7 x 2.4 cm. A few small anechoic cysts/follicles at both ovaries. Largest on the left measuring 8 mm in maximal diameter. Vascular flow identified in both ovaries on color Doppler. There is no free fluid in the pelvis. IMPRESSION: 1. No significant change in size of previously 9 mm and 6 mm, currently 10 mm and 6 mm ovoid anechoic fluid collection within the uterine fundus which remain without discernible yolk sacs or poles. This could be consistent with a failed twin based upon criteria of both absence of doubling in size of the presumptive gestational sacs and absence of an embryo with heart beat within the sacs 14 days following ultrasound demonstrating a gestational sac. 2. Small subchorionic hematoma. Reviewed, dictated and finalized at location A. IMPRESSION: 1. No significant change in size of previously 9 mm and 6 mm, currently 10 mm a nd 6 mm ovoid anechoic fluid collection within the uterine fundus which remain without discernible yolk sacs or poles. This could be consistent with a f vaughn twin based upon criteria of both absence of doubling in size of the presumptive gestational sacs and absence of an embryo with heart beat with in the sacs 14 days following ultrasound demonstrating a gestational sac. 2. Small subchorionic hematoma.
== END 2024-12-15 15:29 | disposition home or self-care (01) ==
LOC: ANHIMG 15:28
PROVIDERS: PCP Family Medicine Adolescent Medicine; Visit Provider Obstetrics & Gynecology Gynecology
DX: O26.851 Spotting complicating pregnancy, first trimester (principal); Z3A.00 Weeks of gestation of pregnancy not specified
CPT/HCPCS: 76801; 76817

== ENCOUNTER 2025-01-03 12:25 | Outpatient (RCR) | payer OTHER, SELFPAY | END 2025-01-10 10:02 | disposition home or self-care (01) | LOC: ANHLAB 12:25 | PROVIDERS: PCP Family Medicine Adolescent Medicine; Visit Provider Obstetrics & Gynecology Gynecology | DX: O26.851 Spotting complicating pregnancy, first trimester (principal); Z3A.00 Weeks of gestation of pregnancy not specified | CPT/HCPCS: 36415; 84702 ==